=== PATIENT | male | born 1930 | race African-American/Black ===

== ENCOUNTER → 2017-01-31 | Outpatient (CLI) | payer MEDICARE ==
[2017-01-31 12:27] LABS: CH 28.6; CHCM 32.1; HDW 2.93; HGB 11.5 gm/dL (13.0-17.5); MCH 28.6 pg (25.0-35.0); MCV 89.6 fL (80.0-100.0); Mean Platelet Volume 8.3; RBC 4.02 m/uL (4.30-5.90); RDW 14.9 % (11.5-15.5)
[2017-01-31 12:39] LABS: Calcium 9.5 mg/dL (8.4-10.2); Potassium 3.9 mmol/L (3.5-5.1); Total Bilirubin 0.7 mg/dL (0.2-1.3); Total Protein 7.6 g/dL (6.3-8.2)
== END | disposition home or self-care (01) ==
LOC: LABWHC1 11:04
PROVIDERS: ATTEND Nurse Practitioner Acute Care
DX: Z00.00 Encounter for general adult medical examination without abnormal findings (principal); E78.2 Mixed hyperlipidemia; D63.8 Anemia in other chronic diseases classified elsewhere
CPT/HCPCS: 36415; 80053; 80061; 84439; 84443; 85027

== ENCOUNTER 2017-03-29 14:20 | Inpatient (IN) | payer MEDICARE ==
--- NOTE | 2017-03-29 14:57 | ED ---
General Adult HPI - General Chief complaint: Weakness Stated complaint: WEAKNESS Time Seen by Provider: 03/29/17 14:20 Source: EMS, RN notes reviewed Mode of arrival: EMS - History of Present Illness Initial comments: This is an 86-year-old male who presents to the emergency department because he had a syncopal episode at home. Patient states he felt dizzy and lightheaded and then he felt extremely weak and then he got to the point where he stated he couldn't move in the next thing he knows EMS was talking to him. Patient denied any chest pain or palpitations per patient denies headache patient denies numbness weakness. Patient denies any abdominal pain patient denies nausea vomiting diarrhea per patient denies any back pain. Patient denies any injury or trauma. - Related Data Home Medications Medication Instructions Recorded Confirmed Aspirin 325 mg PO DAILY 04/03/14 03/29/17 Brimonidine Tartrate [Alphagan P 1 drops BOTH EYES BID 04/03/14 03/29/17 0.15% eye drop] Calcium Carb-Vit D 250Mg-125Un 1 tab PO DAILY 04/03/14 03/29/17 [Oscal 250+D] Dorzolamide HCl/Timolol Maleat 1 drop BOTH EYES AC-BRKFST 04/03/14 03/29/17 [Cosopt Eye Drops] Ginkgo Biloba 60 mg PO BID 04/03/14 03/29/17 Latanoprost Ophth [Xalatan 0.005%] 1 drops BOTH EYES HS 04/03/14 03/29/17 Lisinopril-Hctz 20-12.5 mg 1 tab PO BID 04/03/14 03/29/17 [Zestoretic 20-12.5] Metoprolol Tartrate [Lopressor] 25 mg PO PC-SUPPER 04/03/14 03/29/17 Oxybutynin Chloride 5 mg PO BID 04/03/14 03/29/17 Simvastatin [Zocor] 20 mg PO HS 04/03/14 03/29/17 Ubidecarenone [Coq-10] 100 mg PO HS 04/03/14 03/29/17 Vitamin B Complex 1 cap PO DAILY 04/03/14 03/29/17 Potassium Chloride [K-Tab ER] 10 meq PO DAILY 03/16/15 03/29/17 Allergies Allergy/AdvReac Type Severity Reaction Status Date / Time No Known Allergies Allergy Verified 03/29/17 15:14 Review of Systems ROS Statement: Those systems with pertinent positive or pertinent negative responses have been documented in the HPI. ROS Other: All systems not noted in ROS Statement are negative. Past Medical History Past Medical History: Coronary Artery Disease (CAD), Hearing Disorder / Deafness Additional Past Medical History / Comment(s): low vision, L knee replaced History of Any Multi-Drug Resistant Organisms: None Reported Past Surgical History: Coronary Bypass/CABG, Orthopedic Surgery Additional Past Surgical History / Comment(s): left knee Past Psychological History: No Psychological Hx Reported Smoking Status: Never smoker Past Alcohol Use History: Occasional Past Drug Use History: None Reported General Exam - General Exam Comments Initial Comments: GENERAL: Patient is well-developed and well-nourished. Patient is nontoxic and well- hydrated and is in no acute distress. ENT: Neck is soft and supple. No significant lymphadenopathy is noted. Oropharynx is clear. Moist mucous membranes. Neck has full range of motion without eliciting any pain. EYES: The sclera were anicteric and conjunctiva were pink and moist. Extraocular movements were intact and pupils were equal round and reactive to light. Eyelids were unremarkable. PULMONARY: Unlabored respirations. Good breath sounds bilaterally. No audible rales rhonchi or wheezing was noted. CARDIOVASCULAR: Patient is bradycardic at 45 beats a minute ABDOMEN: Soft and nontender with normal bowel sounds. No palpable organomegaly was noted. There is no palpable pulsatile mass. SKIN: Skin is clear with no lesions or rashes and otherwise unremarkable. NEUROLOGIC: Patient is alert and oriented x3. Cranial nerves II through XII are grossly intact. Motor and sensory are also intact. Normal speech, volume and content. Symmetrical smile. MUSCULOSKELETAL: Normal extremities with adequate strength and full range of motion. No lower extremity swelling or edema. No calf tenderness. LYMPHATICS: No significant lymphadenopathy is noted PSYCHIATRIC: Normal psychiatric evaluation. Normal interpersonal interactions appears functionally intact in deals appropriately with others. No signs of depression. No signs of anxiety. Course Vital Signs 03/29/17 03/29/17 03/29/17 14:22 15:01 15:41 Temperature 98.2 F Pulse Rate 49 L 48 L Pulse Rate [ 57 L Sitting] Pulse Rate [ 55 L Standing] Pulse Rate [ 45 L Supine] Respiratory 18 18 Rate Blood Pressure 147/62 161/75 Blood Pressure 130/60 [Sitting] Blood Pressure 161/75 [Standing] Blood Pressure 142/65 [Supine] O2 Sat by Pulse 98 100 Oximetry Medical Decision Making - Medical Decision Making EKG shows sinus bradycardia with a first-degree AV block. Patient's heart rate 46 bpm [place] interval is 282 QRS is 86 QT interval is 498 QTC is 435. Patient's EKG shows some inverted T waves in the inferior leads as well as V5 and V6. Chest x-ray shows no acute abnormality I spoke with Dr. Silva and the patient will be admitted because of a syncopal episode and bradycardia. - Lab Data Result diagrams: 03/29/17 14:40 03/29/17 14:40 Lab Results 03/29/17 03/29/17 03/29/17 Range/Units 14:40 14:40 14:40 WBC 3.4 L (3.8-10.6) k/uL RBC 4.12 L (4.30-5.90) m/uL Hgb 11.8 L (13.0-17.5) gm/dL Hct 37.7 L (39.0-53.0) % MCV 91.4 (80.0-100.0) fL MCH 28.5 (25.0-35.0) pg MCHC 31.2 (31.0-37.0) g/dL RDW 14.9 (11.5-15.5) % Plt Count 107 L (150-450) k/uL Neutrophils % 53 % Lymphocytes % 31 % Monocytes % 7 % Eosinophils % 4 % Basophils % 1 % Neutrophils # 1.8 (1.3-7.7) k/uL Lymphocytes # 1.0 (1.0-4.8) k/uL Monocytes # 0.2 (0-1.0) k/uL Eosinophils # 0.1 (0-0.7) k/uL Basophils # 0.0 (0-0.2) k/uL Hypochromasia Slight PT (9.0-12.0) sec INR (<1.1) APTT (22.0-30.0) sec Sodium 139 (137-145) mmol/L Potassium 3.3 L (3.5-5.1) mmol/L Chloride 104 (98-107) mmol/L Carbon Dioxide 26 (22-30) mmol/L Anion Gap 9 mmol/L BUN 29 H (9-20) mg/dL Creatinine 1.61 H (0.66-1.25) mg/dL Est GFR (MDRD) Af Amer 49 (>60 ml/min/1.73 sqM) Est GFR (MDRD) Non-Af 41 (>60 ml/min/1.73 sqM) Glucose 100 H (74-99) mg/dL Calcium 9.1 (8.4-10.2) mg/dL Magnesium 2.1 (1.6-2.3) mg/dL Total Bilirubin 0.7 (0.2-1.3) mg/dL AST 37 (17-59) U/L ALT 25 (21-72) U/L Alkaline Phosphatase 84 (38-126) U/L Total Creatine Kinase 152 (55-170) U/L CK-MB (CK-2) 1.3 (0.0-2.4) ng/mL CK-MB (CK-2) Rel Index 0.9 Troponin I <0.012 (0.000-0.034) ng/mL Total Protein 7.3 (6.3-8.2) g/dL Albumin 3.6 (3.5-5.0) g/dL 03/29/17 Range/Units 14:40 WBC (3.8-10.6) k/uL RBC (4.30-5.90) m/uL Hgb (13.0-17.5) gm/dL Hct (39.0-53.0) % MCV (80.0-100.0) fL MCH (25.0-35.0) pg MCHC (31.0-37.0) g/dL RDW (11.5-15.5) % Plt Count (150-450) k/uL Neutrophils % % Lymphocytes % % Monocytes % % Eosinophils % % Basophils % % Neutrophils # (1.3-7.7) k/uL Lymphocytes # (1.0-4.8) k/uL Monocytes # (0-1.0) k/uL Eosinophils # (0-0.7) k/uL Basophils # (0-0.2) k/uL Hypochromasia PT 15.9 H (9.0-12.0) sec INR 1.6 (<1.1) APTT 28.4 (22.0-30.0) sec Sodium (137-145) mmol/L Potassium (3.5-5.1) mmol/L Chloride (98-107) mmol/L Carbon Dioxide (22-30) mmol/L Anion Gap mmol/L BUN (9-20) mg/dL Creatinine (0.66-1.25) mg/dL Est GFR (MDRD) Af Amer (>60 ml/min/1.73 sqM) Est GFR (MDRD) Non-Af (>60 ml/min/1.73 sqM) Glucose (74-99) mg/dL Calcium (8.4-10.2) mg/dL Magnesium (1.6-2.3) mg/dL Total Bilirubin (0.2-1.3) mg/dL AST (17-59) U/L ALT (21-72) U/L Alkaline Phosphatase (38-126) U/L Total Creatine Kinase (55-170) U/L CK-MB (CK-2) (0.0-2.4) ng/mL CK-MB (CK-2) Rel Index Troponin I (0.000-0.034) ng/mL Total Protein (6.3-8.2) g/dL Albumin (3.5-5.0) g/dL Disposition Clinical Impression: Bradycardia, Syncope and collapse Disposition: ADMITTED IP TO THIS [facility] Referrals: Ray Silva MD [Primary Care Provider] - 1-2 days Time of Disposition: 17:32
[2017-03-29 15:04] LABS: Basophils % (A) 1 %; CH 28.8; CHCM 31.8; Eosinophils # (A) 0.1 k/uL (0-0.7); Eosinophils % (A) 4 %; HCT 37.7 % (39.0-53.0); HDW 2.82; HGB 11.8 gm/dL (13.0-17.5); Hypochromasia Slight; Luc # (Auto) 0.14; Luc % (Auto) 4; Lymphocytes % (A) 31 %; MCH 28.5 pg (25.0-35.0); MCHC 31.2 g/dL (31.0-37.0); MCV 91.4 fL (80.0-100.0); Mean Platelet Volume 8.5; Monocytes # (A) 0.2 k/uL (0-1.0); Monocytes % (A) 7 %; Neutrophils # (A) 1.8 k/uL (1.3-7.7); Neutrophils % (A) 53 %; RBC 4.12 m/uL (4.30-5.90); RDW 14.9 % (11.5-15.5); WBC 3.4 k/uL (3.8-10.6); WBC (Perox) 3.44
[2017-03-29 15:12] LABS: Calcium 9.1 mg/dL (8.4-10.2); Magnesium 2.1 mg/dL (1.6-2.3); Potassium 3.3 mmol/L (3.5-5.1); Total Bilirubin 0.7 mg/dL (0.2-1.3); Total Protein 7.3 g/dL (6.3-8.2)
[2017-03-29 15:21] LABS: INR 1.6 (<1.1); Partial Thromboplastin Time 28.4 sec (22.0-30.0); Prothrombin Time 15.9 sec (9.0-12.0)
--- NOTE | 2017-03-29 15:23 | XR ---
EXAMINATION TYPE: XR chest 2V DATE OF EXAM: 03/29/2017 3:16 PM COMPARISON: 05/05/16 HISTORY: Shortness of breath TECHNIQUE: Frontal and lateral views of the chest are obtained. FINDINGS: Scattered senescent parenchymal changes noted. Hyperinflation compatible with COPD. No evidence for infiltrate. No evidence for atelectasis. Heart size is stable. Thoracic aorta. Mediastinal structures are stable and grossly unremarkable. No evidence for hilar prominence. Degenerative changes dorsal spine. IMPRESSION: 1. No evidence for acute pulmonary disease.
[2017-03-29 15:30] LABS: Creatine Kinase 152 U/L (55-170)
[2017-03-29 15:42] LABS: Creatine Kinase MB 1.3 ng/mL (0.0-2.4); Troponin I <0.012 ng/mL (0.000-0.034)
[2017-03-29] MEDS ORDERED: NITROGLYCERIN SL TABS 0.4 MG TAB SUBLINGUAL PRN (17:32)
[2017-03-29] MEDS ORDERED: Potassium Replacement Protocol 1 EACH MISC MISCELLANE PRN (21:35)
[2017-03-29 22:01] LABS: Creatine Kinase 131 U/L (55-170)
[2017-03-29 22:14] LABS: Creatine Kinase MB 1.1 ng/mL (0.0-2.4); Troponin I <0.012 ng/mL (0.000-0.034)
[2017-03-29] MEDS: POTASSIUM CHLORIDE ORAL LIQUID 40 MEQ/30 ML CUP NG-TUBE SCH (23:20)
[2017-03-30] MEDS: POTASSIUM CHLORIDE ORAL LIQUID 40 MEQ/30 ML CUP NG-TUBE SCH ×2 (01:40→03:45)
[2017-03-30 03:44] LABS: CH 28.7; CHCM 31.9; HCT 37.6 % (39.0-53.0); HDW 2.79; Hypochromasia Slight; MCH 28.9 pg (25.0-35.0); MCHC 31.9 g/dL (31.0-37.0); MCV 90.6 fL (80.0-100.0); Mean Platelet Volume 7.4; RBC 4.15 m/uL (4.30-5.90); WBC 3.4 k/uL (3.8-10.6)
[2017-03-30 03:55] LABS: Anion Gap 8 mmol/L; Blood Urea Nitrogen 25 mg/dL (9-20); Calcium 9.2 mg/dL (8.4-10.2); Carbon Dioxide 23 mmol/L (22-30); Chloride 108 mmol/L (98-107); Cholesterol 160 mg/dL (<200); Glucose 84 mg/dL (74-99); HDL Cholesterol 51 mg/dL (40-60); Non-African American GFR(MDRD) 51 (>60 ml/min/1.73 sqM); Potassium 4.1 mmol/L (3.5-5.1); Sodium 139 mmol/L (137-145); Triglycerides 45 mg/dL (<150)
[2017-03-30 04:13] LABS: Creatine Kinase 124 U/L (55-170)
[2017-03-30 04:27] LABS: Creatine Kinase MB 0.8 ng/mL (0.0-2.4); Troponin I <0.012 ng/mL (0.000-0.034)
--- NOTE | 2017-03-30 08:03 | HP ---
DATE OF ADMISSION: 03/29/2017 CHIEF COMPLAINT: Passing episode. HISTORY OF PRESENT ILLNESS: This 86-year-old gentleman was brought in to the emergency room by EMS. The patient was sitting up in a chair at home when he slumped forward. The patient's noticed that he was unresponsive. His eyes were rolled back. The patient had no seizure activity. The patient was breathing somewhat harder but he did not have any diaphoresis. No nausea or vomiting. He had eaten about 3 to 4 hours earlier. The patient is not a diabetic. The patient was seen by EMS, noted that his blood pressure was adequate. The patient's pulse rate was slow. He is brought to the emergency room in view of this. The patient is alert at the time of this evaluation. The patient did take about 5 to 10 minutes to come around. Upon evaluation in the emergency room, patient is noted at the initial evaluation by the emergency room physician noted to be in no distress and had no focal neurological deficits. Patient was alert. At time of my exam, the patient totally his usual self. The patient has no specific complaints of chest pain, shortness of breath or headache. 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 The patient also has a history of peripheral arterial disease with previous left leg revascularization. He was at the vascular surgeon yesterday and was noted the bypass was felt to be intact. His has had a history of coronary atherosclerosis and coronary artery disease. Patient does have a history of degenerative arthritis. No history of any lung disease, liver disease, kidney disease, ulcers, TB, hepatitis. No history of any rheumatic fever, myocardial infarction. Does have had a minor CVA with no focal neurodeficits. Surgeries included left total knee arthroplasty, left leg revascularization and right cataract surgery. PERSONAL HISTORY: The patient is an ex-smoker, quit smoking in 1973, he did smoke a pack per day for 20 years. Alcohol none. Vaccination history: Previous Zostavax and Pneumovax. He also has had Prevnar 13 on February 14, 2017. ALLERGIES: POSSIBLY PLETAL. MEDICATIONS: 1. Metoprolol tartrate 25 mg daily. 2. Amlodipine 5 mg daily. 3. Aspirin 81 mg daily. 4. Alphagan 0.2% eye drops one drop both eyes daily. 5. Xalatan 0.005% eye drops one drop both eyes daily. 6. Cosopt 2% on/0.5% eye drops one drop both eyes daily. 7. Amlodipine 5 mg daily. 8. Potassium 10 mEq b.i.d. 9. Lisinopril hydrochlorothiazide 20/12.51 daily. 10. Oxybutynin, chloride 5 mg 1 tablet by mouth b.i.d. 11. Metoprolol tartrate 25 mg daily. 12. Simvastatin 20 mg daily. 13. Nitrostat 70, 1 p.r.n. 14. Flomax 0.4 mg daily. 15. Tamsulosin 0.4 mg daily. SOCIAL HISTORY: The patient is , lives with spouse. 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 He does exercise by bicycling, stationary bike on a regular basis. FAMILY HISTORY: Father at the age of 72. He had bone cancer, primary unknown. Mother at the age of 79, She had acute myocardial infarction. History of hypertension and brothers he had 6 brothers, all . One had CA of the lung, one had carcinoma of the larynx, 2 brothers had acute myocardial infarctions. Two other brothers, history unknown. The patient had 4 sisters, all . One at the age of 69 of carcinoma of the breast, another sister at the age of 76 acute myocardial infarction. The other 2 sisters, history unknown. The patient has a son and daughter living, both in fairly good health. The patient son is 53 and a daughter 57. REVIEW OF SYSTEMS: NEURO: Denies any headaches, dizziness. No double vision. Does have some mild visual problems. No symptoms of focal neurological deficit. The patient did have a syncopal episode. PSYCH: No anxiety, depression. CARDIAC: Denies chest pain, angina, palpitations. RESPIRATORY: Denies shortness of breath, cough, hemoptysis. GI: Denies any nausea, vomiting, abdominal pain, diarrhea. : Denies symptoms of dysuria or hematuria, does have some frequency. EXTREMITIES: Denies pain except for the knee joints. CONSTITUTIONAL: No fever or chills. HEMATOLOGIC: No anemia or bleeding disorder. ENDOCRINE: No history of diabetes mellitus, history of hyperlipidemia, on medical therapy. SKIN: No rashes. ENT: Adequate smell, taste. Decreased hearing. EYES: Decreased vision left eye. PHYSICAL EXAMINATION: Pleasant gentleman, at present in no distress, lying in the stretcher without any difficulty. He is able to ( ). VITAL SIGNS: Temperature 97.7, pulse 41, respirations are 18, blood pressure 159/73, pulse ox 96% room air. The patient had some orthostatic changes done in the emergency room which revealed blood pressure 130/60 sitting, blood pressure 161/75, standing and blood pressure 142/65, supine. The patient is afebrile. HEENT: Normocephalic. NECK: Decreased range of motion. Pupils are left reactive. Nostrils are clear. Oral cavity is moist. Ears reveal no drainage. Neck reveals no JVD, carotid bruits, or thyromegaly. Chest examination is clear to auscultation and percussion. CARDIAC: Normal S1, S2 with no gallops. Systolic murmur 2/6 left sternal border. ABDOMEN: Soft, no palpable masses. Bowel sounds normal. No organomegaly. No abdominal bruits. EXTREMITIES: Reveal trace edema. NEUROLOGICAL: Awake, alert, oriented x3 with well-coordinated movements in both upper and lower extremities with equal strength. The patient has fairly strong hand grasp. LABORATORY ASSESSMENT: An EKG which reveals sinus bradycardia with first-degree AV block in LVH. Chest x-ray reveals no acute process. Biopsy evaluation revealed the hemoglobin 11.8, white count of 3400, platelets 107,000. The patient's INR is 1.6, potassium 3.3, BUN 29, creatinine 1.61, glucose 100, liver enzymes normal. Cardiac enzymes are normal. Thyroid functions normal. Albumin 3.6. ASSESSMENT: 1. Syncope etiology probably cardiac suspect significant bradycardia. 2. History of hypertension. 3. History of coronary artery disease. 4. History of peripheral arterial disease. 5. Hyperlipidemia, on medical therapy. 6. Hypertension on medical therapy. 7. Previous history of cerebral aneurysm. PLAN: The patient at present is stable. Continue present medical regimen. The patient's condition was discussed with the patient and spouse. Prognosis remains guarded. Patient being admitted to the hospital for further evaluation regarding, syncope because of the prolonged episode. The patient suspect probably has ( ) syncope. He will, however, have an echocardiogram and carotid duplex studies done to rule out any other process. Prognosis remains guarded.
--- NOTE | 2017-03-30 08:23 | US ---
EXAMINATION TYPE: US carotid duplex BILAT DATE OF EXAM: 03/30/2017 8:11 AM COMPARISON: NONE CLINICAL HISTORY: syncope. EXAM MEASUREMENTS: RIGHT: Peak Systolic Velocity (PSV) cm/sec ----- Right CCA: 69.1 ----- Right ICA: 72.3 ----- Right ECA: 88.9 ICA/CCA ratio: 1.0 RIGHT: End Diastole cm/sec ----- Right CCA: 12.0 ----- Right ICA: 10.4 ----- Right ECA: 0.0 LEFT: Peak Systolic Velocity (PSV) cm/sec ----- Left CCA: 64.5 ----- Left ICA: 75.7 ----- Left ECA: 114.1 ICA/CCA ratio: 1.2 LEFT: End Diastole cm/sec ----- Left CCA: 10.4 ----- Left ICA: 19.7 ----- Left ECA: 0.0 VERTEBRALS (direction of flow): Right Vertebral: Antegrade Left Vertebral: Antegrade No elevated velocities, no significant stenosis, bilateral plaque noted IMPRESSION: I DO NOT SEE EVIDENCE OF A HEMODYNAMICALLY SIGNIFICANT STENOSIS IN EITHER CAROTID SYSTEM. Criteria for Assigning % of Stenosis / Diameter reduction (Estimation based on the indirect measurements of the internal carotid artery velocities (ICA PSV). 1. Normal (no stenosis)=ICA PSV < 125 cm/s: ratio < 2.0: ICA EDV<40 cm/s. 2. Less than 50% stenosis=ICA PSV < 125 cm/s: ratio < 2.0: ICA EDV<40 cm/s. 3. 50 to 69% stenosis=ICA PSV of 125 to 230 cm/s: ration 2.0 ? 4.0: ICA EDV 40-100 cm/s. 4. Greater than 70% stenosis to near occlusion= ICA PSV > 230 cm/s: ratio > 4.0: ICA EDV > 100 cm/s. 5. Near occlusion= ICA PSV velocities may be low or undetectable: variable ratio and ICA EDV. 6. Total occlusion=unable to detect flow.
[2017-03-30] MEDS: ASPIRIN 325 MG TAB PO SCH (08:42)
[2017-03-30] MEDS: LISINOPRIL-HCTZ 20-12.5 MG 1 EACH TAB PO SCH ×2 (08:42→21:11)
[2017-03-30] MEDS: BRIMONIDINE TARTRATE 0.2% DROPS 5 ML BTL BOTH EYES SCH ×2 (08:43→21:11)
[2017-03-30] MEDS: POTASSIUM CHLORIDE ER 10 MEQ TAB.ER.PRT PO SCH (08:43)
[2017-03-30] MEDS: TAMSULOSIN 0.4 MG CAP.ER.24H PO SCH (08:43)
[2017-03-30] MEDS: OXYBUTYNIN CHLORIDE 5 MG TAB PO SCH ×2 (08:43→21:11)
[2017-03-30] MEDS ORDERED: PSYLLIUM HUSK 100% 6 GM PACKET PO SCH (09:00)
[2017-03-30] MEDS ORDERED: ASPIRIN 325 MG TAB PO SCH (09:00)
--- NOTE | 2017-03-30 09:41 | P.CRDCN ---
History of Present Illness Consult date: 03/30/17 Reason for Consult (text): syncope, bradycardia Chief complaint: syncope History of present illness: This is a pleasant 86-year-old -Citizen Of [place] gentleman with a known history of hypertension, coronary artery disease and previous CABG. Presented to the emergency department via EMS after losing consciousness at home. Patient said he was getting ready to leave for therapy sat down in a chair felt weak and dizzy and briefly lost consciousness. He said bland EMS arrived he began to come around and felt better. Said he has had similar episode in the past and does have periods of lightheadedness. He's had no complaints of dizziness, lightheadedness or syncope since admission. On admission his EKG showed sinus bradycardia with a first-degree AV block with heart rates in the 40s. His potassium was 3.3 was supplemented and currently 4.1. Troponins were negative 3, BUN 25 and creatinine 1.32. Echocardiogram has been ordered. Chest x-ray was negative for any acute cardiopulmonary process. He was on metoprolol tartrate 25 mg daily at home and this is been on hold. Patient's heart rate is currently 50s to 60s. His blood pressure is running high 170s to 200 systolic. He is currently on Zestoretic for blood pressure control. Past Medical History Past Medical History: Coronary Artery Disease (CAD), Hearing Disorder / Deafness Additional Past Medical History / Comment(s): low vision, L knee replaced History of Any Multi-Drug Resistant Organisms: None Reported Past Surgical History: Coronary Bypass/CABG, Orthopedic Surgery Additional Past Surgical History / Comment(s): left knee, left leg bypass-as per patients Past Anesthesia/Blood Transfusion Reactions: No Reported Reaction Past Psychological History: No Psychological Hx Reported Smoking Status: Former smoker Past Alcohol Use History: Occasional Past Drug Use History: None Reported Medications and Allergies Home Medications Medication Instructions Recorded Confirmed Type Aspirin 325 mg PO DAILY 04/03/14 03/29/17 History Brimonidine Tartrate [Alphagan P 1 drops BOTH EYES BID 04/03/14 03/29/17 History 0.15% eye drop] Calcium Carb-Vit D 250Mg-125Un 1 tab PO DAILY 04/03/14 03/29/17 History [Oscal 250+D] Dorzolamide HCl/Timolol Maleat 1 drop BOTH EYES AC-BRKFST 04/03/14 03/29/17 History [Cosopt Eye Drops] Ginkgo Biloba 60 mg PO BID 04/03/14 03/29/17 History Latanoprost Ophth [Xalatan 0.005%] 1 drops BOTH EYES HS 04/03/14 03/29/17 History Lisinopril-Hctz 20-12.5 mg 1 tab PO BID 04/03/14 03/29/17 History [Zestoretic 20-12.5] Metoprolol Tartrate [Lopressor] 25 mg PO PC-SUPPER 04/03/14 03/29/17 History Oxybutynin Chloride 5 mg PO BID 04/03/14 03/29/17 History Simvastatin [Zocor] 20 mg PO HS 04/03/14 03/29/17 History Ubidecarenone [Coq-10] 100 mg PO HS 04/03/14 03/29/17 History Vitamin B Complex 1 cap PO DAILY 04/03/14 03/29/17 History Potassium Chloride [K-Tab ER] 10 meq PO DAILY 03/16/15 03/29/17 History Glucosamine Sulfate 500 mg PO BID 03/29/17 03/29/17 History Psyllium Husk (with Sugar) 575 mg PO DAILY 03/29/17 03/29/17 History [Metamucil Powder] Tamsulosin [Flomax] 0.4 mg PO DAILY 03/29/17 03/29/17 History Allergies Allergy/AdvReac Type Severity Reaction Status Date / Time No Known Allergies Allergy Verified 03/29/17 15:14 Physical Exam Vitals: Vital Signs Temp Pulse Pulse Resp BP BP Pulse Ox 03/30/17 04:00 97.9 F 44 L 16 175/84 99 03/30/17 00:00 96.8 F L 50 L 16 171/79 99 03/29/17 20:00 97.3 F L 42 L 16 176/81 100 03/29/17 18:45 97.7 F 41 L 18 159/73 96 03/29/17 17:47 52 L 18 159/73 96 Intake and Output 03/29/17 03/30/17 03/30/17 22:59 06:59 14:59 Intake Total 300 Output Total 200 350 Balance -200 -50 Intake: Oral 300 Output: Urine 200 350 Other: Voiding Method Urinal # Voids 1 2 Weight 60 kg PHYSICAL EXAMINATION: HEENT: Head is atraumatic, normocephalic. Pupils equal, round. Neck is supple. There is no elevated jugular venous pressure. Patient is hard of hearing HEART EXAMINATION: Heart sounds regular, S1 and S2 with a systolic murmur. CHEST EXAMINATION: Lungs are clear to auscultation and precussion. No chest wall tenderness is noted on palpation or with deep breathing. ABDOMEN: Soft, nontender. Bowel sounds are heard. No organomegaly noted. EXTREMITIES: 2+ peripheral pulses with no evidence of peripheral edema and no calf tenderness noted. NEUROLOGIC patient is awake, alert and oriented x3. . Results 03/30/17 03:15 03/30/17 03:15 Cardiac Enzymes 03/29/17 03/30/17 Range/Units 20:50 03:15 CK-MB (CK-2) 1.1 0.8 (0.0-2.4) ng/mL Troponin I <0.012 <0.012 (0.000-0.034) ng/mL Lipids 03/30/17 Range/Units 03:15 Triglycerides 45 (<150) mg/dL Cholesterol 160 (<200) mg/dL HDL Cholesterol 51 (40-60) mg/dL CBC 03/30/17 Range/Units 03:15 WBC 3.4 L (3.8-10.6) k/uL RBC 4.15 L (4.30-5.90) m/uL Hgb 12.0 L (13.0-17.5) gm/dL Hct 37.6 L (39.0-53.0) % Plt Count 106 L (150-450) k/uL Comprehensive Metabolic Panel 03/30/17 Range/Units 03:15 Sodium 139 (137-145) mmol/L Potassium 4.1 (3.5-5.1) mmol/L Chloride 108 H (98-107) mmol/L Carbon Dioxide 23 (22-30) mmol/L BUN 25 H (9-20) mg/dL Creatinine 1.32 H (0.66-1.25) mg/dL Glucose 84 (74-99) mg/dL Calcium 9.2 (8.4-10.2) mg/dL Current Medications Generic Name Dose Route Start Last Admin Trade Name Freq PRN Reason Stop Dose Admin Amlodipine Besylate 5 mg 03/30/17 09:15 Norvasc PO DAILY LALO Aspirin 325 mg 03/30/17 09:00 03/30/17 08:42 Aspirin PO 325 mg DAILY LALO Administration Atorvastatin Calcium 10 mg 03/30/17 21:00 Lipitor PO HS [facility] Brimonidine Tartrate 1 drops 03/30/17 09:00 03/30/17 08:43 Alphagan P 0.2% Ophth Soln BOTH EYES 1 drops BID LALO Administration Lisinopril/HCTZ 1 each 03/30/17 09:00 03/30/17 08:42 Zestoretic 20-12.5 PO 1 each BID LALO Administration Latanoprost 1 drops 03/30/17 21:00 Xalatan 0.005% BOTH EYES HS [facility] Miscellaneous Information 1 each 03/29/17 21:35 Potassium Per Protocol MISCELLANE DAILY PRN Per Protocol Protocol Nitroglycerin 0.4 mg 03/29/17 17:32 Nitrostat SUBLINGUAL Q5M PRN Chest Pain Oxybutynin Chloride 5 mg 03/30/17 09:00 03/30/17 08:43 Ditropan PO 5 mg BID LALO Administration Potassium Chloride 10 meq 03/30/17 09:00 03/30/17 08:43 K-Dur 10 PO 10 meq DAILY LALO Administration Psyllium Hydrophilic Mucilloid 6 gm 03/30/17 21:00 Metamucil PO HS LALO Tamsulosin HCl 0.4 mg 03/30/17 09:00 03/30/17 08:43 Flomax PO 0.4 mg DAILY LALO Administration Intake and Output 03/29/17 03/30/17 03/30/17 22:59 06:59 14:59 Intake Total 300 Output Total 200 350 Balance -200 -50 Intake: Oral 300 Output: Urine 200 350 Other: Voiding Method Urinal # Voids 1 2 Weight 60 kg 03/30/17 03:15 03/30/17 03:15 Assessment and Plan Plan: Assessment and plan #1 syncope, likely secondary to bradycardia #2 bradycardia #3 hypertension, uncontrolled #4 history of coronary artery disease From cardiology standpoint, continue to hold metoprolol. We will review 2-D echo with Doppler. We'll add Norvasc for uncontrolled hypertension. We will monitor the patient's heart rate for at least another 24 hours. Further recommendations to follow. [employer] note has been reviewed, I agree with a documented findings and plan of care. Patient was seen and examined.
--- NOTE | 2017-03-30 10:54 | ECHOF ---
Referral Reason:syncope MEASUREMENTS -------- HEIGHT: 154.9 cm WEIGHT: 59.9 kg BP: 175/84 IVSd: 1.3 cm (0.6 - 1.1) LVIDd: 5.4 cm (3.9 - 5.3) LVPWd: 1.2 cm (0.6 - 1.1) IVSs: 1.7 cm LVIDs: 3.5 cm LVPWs: 2.0 cm LAESV Index (A-L): 50.72 ml/m Ao Diam: 3.2 cm (2.0 - 3.7) AV Cusp: 1.7 cm (1.5 - 2.6) LA Diam: 3.1 cm (2.7 - 3.8) MV EXCURSION: 14.577 mm (> 18.000) MV EF SLOPE: 19 mm/s (70 - 150) EPSS: 1.2 cm MV E Cesario: 0.73 m/s MV DecT: 169 ms MV A Cesario: 0.52 m/s MV E/A Ratio: 1.39 AV maxP.55 mmHg AV meanP.82 mmHg AR PHT: 360 ms RAP: 5.00 mmHg RVSP: 39.53 mmHg FINDINGS -------- Sinus rhythm with extra systolic beats. This was a technically good study. There is mild concentric left ventricular hypertrophy. Overall left ventricular systolic function is low-normal with, an EF between 50 - 55 %. The right ventricle is normal in size and function. LA is severely dilated >40 ml/m2 The right atrium is normal in size. Aortic valve is trileaflet and is mildly thickened. There is mild aortic regurgitation. There is mild aortic stenosis present. The mitral valve leaflets are mildly thickened. Smbqjjao-qw-mmoejh mitral regurgitation is present. Mild tricuspid regurgitation present. There is mild pulmonary hypertension. The right ventricular systolic pressure, as measured by Doppler, is 39.53mmHg. Pulmonic valve appears structurally normal. The aortic root size is normal. The pericardium is normal. CONCLUSIONS -------- 1. Sinus rhythm with extra systolic beats. 2. There is mild aortic stenosis present. 3. The mitral valve leaflets are mildly thickened. 4. Eazzitkr-mz-brdglr mitral regurgitation is present. 5. Mild tricuspid regurgitation present. 6. There is mild pulmonary hypertension. 7. The right ventricular systolic pressure, as measured by Doppler, is 39.53mmHg. 8. Pulmonic valve appears structurally normal. 9. The aortic root size is normal. 10. The pericardium is normal. 11. This was a technically good study. 12. There is mild concentric left ventricular hypertrophy. 13. Overall left ventricular systolic function is low-normal with, an EF between 50 - 55 %. 14. The right ventricle is normal in size and function. 15. LA is severely dilated >40 ml/m2 16. The right atrium is normal in size. 17. Aortic valve is trileaflet and is mildly thickened. 18. There is mild aortic regurgitation. BRIDGE IRONWORKER HELPER: Elizabeth Terry RDCS
[2017-03-30] MEDS: amLODIPine 5 MG TAB PO SCH (11:04)
--- NOTE | 2017-03-30 14:22 | PN ---
CHIEF COMPLAINT: Re-evaluation. HISTORY OF PRESENT ILLNESS: This is an 86-year-old gentleman was admitted to the hospital with syncope. The patient does have significant bradycardia. The patient has been referred to [employer] java developer for consideration of the possibility of a pacemaker. We are waiting further evaluation with an echocardiogram and carotids. The patient did have carotids which revealed no evidence of any significant disease process. Echocardiogram showed ejection fraction of 50 to 55% and left atrium markedly dilated. Mild aortic regurgitation, mild aortic stenosis present. Mild pulmonary hypertension. No evidence of pericardial effusion. REVIEW OF SYSTEMS: NEURO: Denies any headaches, dizziness. PSYCH: No anxiety. CARDIAC: No chest pain, angina, palpitation. RESPIRATORY: No shortness of breath, cough, hemoptysis. GI: No nausea, vomiting, abdominal pain, diarrhea. : No symptoms of dysuria, hematuria. EXTREMITIES: Denies pain. CONSTITUTIONAL: No fever or chills. PHYSICAL EXAMINATION: Pleasant gentleman in no distress. Vitals as recorded with pulse rate generally in the 40s, occasionally 50s. Is afebrile. Temperature 98.6, pulse 51, respirations 18, blood pressure was 200/115, pulse ox 99% on room air. HEENT: Normocephalic. NECK: No JVD. Chest is clear to auscultation. CARDIAC: Normal S1, S2 with no gallops. Systolic murmur 2/6 left sternal border. Distant heart sounds. ABDOMEN: Soft. Bowel sounds present. EXTREMITIES: Reveal trace edema. NEUROLOGICAL: Awake, alert, oriented with well coordinated movements. LABORATORY ASSESSMENT: Hemoglobin 12, white count 3.4, platelets 106,000. BUN 25, creatinine 1.32. Troponin is negative. LDL 100. ASSESSMENT: 1. Syncope etiology undetermined, possible bradycardia. 2. Coronary artery disease, stable. 3. Hypertension with elevated blood pressure at times. 4. History of peripheral arterial disease. 5. History of previous cerebrovascular accident. 6. Thrombocytopenia. 7. Leukopenia. PLAN: Continue present medical regimen. The patient's condition discussed with the patient. Prognosis guarded. Await final decision by Cardiology. Patient is off beta alexander and Timolol.
[2017-03-30] MEDS: PSYLLIUM HUSK 100% 6 GM PACKET PO SCH (21:10)
[2017-03-30] MEDS: LATANOPROST 0.005% OPHTH DROPS 2.5 ML BTL BOTH EYES SCH (21:10)
[2017-03-30] MEDS: ATORVASTATIN 10 MG TAB PO SCH (21:11)
[2017-03-31] MEDS: ASPIRIN 325 MG TAB PO SCH (07:58)
[2017-03-31] MEDS: amLODIPine 5 MG TAB PO SCH (07:58)
[2017-03-31] MEDS: POTASSIUM CHLORIDE ER 10 MEQ TAB.ER.PRT PO SCH (07:58)
[2017-03-31] MEDS: OXYBUTYNIN CHLORIDE 5 MG TAB PO SCH ×2 (07:59→20:23)
[2017-03-31] MEDS: TAMSULOSIN 0.4 MG CAP.ER.24H PO SCH (07:59)
[2017-03-31] MEDS: LISINOPRIL-HCTZ 20-12.5 MG 1 EACH TAB PO SCH ×2 (07:59→20:23)
[2017-03-31] MEDS: BRIMONIDINE TARTRATE 0.2% DROPS 5 ML BTL BOTH EYES SCH ×2 (07:59→20:22)
--- NOTE | 2017-03-31 08:45 | P.PN ---
Progress Note - Text The patient is a 86-year-old gentleman whom I am covering for for Dr. Silva. Patient apparently presented with significant bradycardia and syncope. He is in the process of being evaluated by cardiology for possible pacemaker. Medications have been adjusted so that he is off any beta blockers and his timolol. He does have past history of coronary artery disease along with hypertension, peripheral vascular disease and a previous CVA. Thrombocytopenia and leukopenia. Monitor pattern at times in the 40s at night. Presently up into the 60s and 70s with sinus rhythm. This morning is sitting up in bed. He denies any chest pain or shortness of breath. He is alert and oriented. Vital signs reveal a temp of 97.5 with a pulse now of 63 and regular and respirations 17. Blood pressure elevated at 186/81 and he is 97% saturated on room air. Lung and heart examination is clear and regular. No unusual distal edema. No focal neurological deficits. Lab tests from March 30 show a white count of 3.4 and a hemoglobin of 12 and a platelet count of 106. Apparently these are patient's baseline results. Carotid Dopplers did not show any significant stenoses. Impressions and plans: Discussed with cardiology nurse practitioner. Also discussed with patient at the bedside. We'll await further recommendations from cardiology regarding need for pacemaker. The patient is presently on amlodipine and lisinopril for blood pressure control.
[2017-03-31] MEDS ORDERED: amLODIPine 10 MG TAB PO SCH (10:18)
[2017-03-31 12:22] LABS: Anion Gap 8 mmol/L; Blood Urea Nitrogen 18 mg/dL (9-20); Carbon Dioxide 25 mmol/L (22-30); Chloride 104 mmol/L (98-107); Glucose 104 mg/dL (74-99); Non-African American GFR(MDRD) 57 (>60 ml/min/1.73 sqM); Potassium 3.5 mmol/L (3.5-5.1); Sodium 137 mmol/L (137-145)
--- NOTE | 2017-03-31 12:25 | P.PN ---
Subjective Principal diagnosis: Syncope, Bradycardia Is a pleasant 86-year-old -[place] gentleman with a known history of hypertension, coronary artery disease and previous CABG. Presented to the emergency department via EMS after losing consciousness at home. Patient said he was getting ready to leave for therapy sat down in a chair and felt weak and dizzy and briefly lost consciousness. He said by the time EMS arrived he began to come around and felt quite a bit better. He has had similar episodes in the past and does have periods of lightheadedness. Admission his EKG showed sinus bradycardia with a first-degree AV block with heart rates in the 40s. His potassium was 3.3 and was supplemented, awaiting labs for this morning. Troponins were negative 3 BUN was 25 and creatinine 1.32. Echocardiogram was done that showed an ejection fraction of 50-55%. His admission his metoprolol has been discontinued. His heart rates have been much better in the 60s however patient is having quite a bit of ectopy, PVCs, couplets, triplets and short runs of nonsustained VT, patient is asymptomatic with these. His blood pressure continues to be poorly controlled, amlodipine was added yesterday. Objective - Vital Signs Vital signs: Vital Signs Temp 98.3 F 03/31/17 08:00 Pulse 63 03/31/17 08:00 Resp 18 03/31/17 08:00 BP 209/95 03/31/17 08:00 Pulse Ox 99 03/31/17 08:00 Intake & Output 03/30/17 03/31/17 03/31/17 18:59 06:59 18:59 Intake Total 1080 360 Output Total 200 580 600 Balance 880 -580 -240 Weight 75.6 kg Intake: Oral 1080 360 Output: Urine 200 580 600 Other: Voiding Method Urinal Toilet Toilet Urinal Urinal # Voids 1 1 1 # Bowel Movements 0 1 - Exam PHYSICAL EXAMINATION: HEENT: Head is atraumatic, normocephalic. Pupils equal, round. Neck is supple. There is no elevated jugular venous pressure. HEART EXAMINATION: Heart sounds regular, S1 and S2 with a systolic murmur. CHEST EXAMINATION: Lungs are clear to auscultation and precussion. No chest wall tenderness is noted on palpation or with deep breathing. ABDOMEN: Soft, nontender. Bowel sounds are heard. No organomegaly noted. EXTREMITIES: 2+ peripheral pulses with no evidence of peripheral edema and no calf tenderness noted. NEUROLOGIC patient is awake, alert and oriented x3. . - Labs CBC & Chem 7: 03/30/17 03:15 03/30/17 03:15 Assessment and Plan Plan: Assessment and plan #1 syncope, likely secondary to bradycardia #2 bradycardia #3 hypertension, uncontrolled #4 history of coronary artery disease From cardiology standpoint, continue to hold metoprolol. We will increase Norvasc. We will monitor the patient's heart rate and blood pressure for at least another 24 hours. Further recommendations to follow. BELL TIER note has been reviewed, I agree with a documented findings and plan of care. Patient was seen and examined.
[2017-03-31] MEDS ORDERED: amLODIPine 5 MG TAB PO STA (15:24)
[2017-03-31] MEDS: SODIUM CHLORIDE 0.65% NASAL SPRAY 44 ML BTL NASAL SCH ×2 (16:01→20:22)
[2017-03-31] MEDS: LATANOPROST 0.005% OPHTH DROPS 2.5 ML BTL BOTH EYES SCH (20:22)
[2017-03-31] MEDS: PSYLLIUM HUSK 100% 6 GM PACKET PO SCH (20:23)
[2017-03-31] MEDS: ATORVASTATIN 10 MG TAB PO SCH (20:23)
[2017-04-01] MEDS: BRIMONIDINE TARTRATE 0.2% DROPS 5 ML BTL BOTH EYES SCH ×2 (08:21→21:10)
[2017-04-01] MEDS: LISINOPRIL-HCTZ 20-12.5 MG 1 EACH TAB PO SCH (08:21)
[2017-04-01] MEDS: ASPIRIN 325 MG TAB PO SCH (08:21)
[2017-04-01] MEDS: SODIUM CHLORIDE 0.65% NASAL SPRAY 44 ML BTL NASAL SCH ×2 (08:21→21:11)
[2017-04-01] MEDS: POTASSIUM CHLORIDE ER 10 MEQ TAB.ER.PRT PO SCH (08:22)
[2017-04-01] MEDS: OXYBUTYNIN CHLORIDE 5 MG TAB PO SCH ×2 (08:22→21:10)
[2017-04-01] MEDS: TAMSULOSIN 0.4 MG CAP.ER.24H PO SCH (08:22)
--- NOTE | 2017-04-01 09:54 | P.PN ---
Progress Note - Text The patient is a 86-year-old gentleman, a patient of Dr. Silva for whom I am covering today. Patient initially presented with significant bradycardia and syncope. He is in the process of being evaluated by cardiology. He has been off his beta blockers. Patient does have past history of coronary artery disease along with hypertension, peripheral vascular disease and a previous CVA along with thrombocytopenia and leukopenia. This morning he is in a chair at the side of the bed. Easily arouse. He denies chest pain or shortness of breath. Last recorded vital signs reveal a temperature of 98.1 with a pulse of 63 and regular along with the nonlabored respirations of 16 and a blood pressure of 174 /79. 96% saturation on room air. He is generally alert and oriented. Lung and heart examination is clear and regular. Abdomen nontender. No unusual edema. Cranial nerves intact. No focal weakness noted. Laboratory results: Yesterday his potassium of 3.5. BUN of 18 with a creatinine 1.2 giving him a GFR of greater than 60. Blood sugar 104. TSH was normal at 1.7. Cholesterol values are generally good for his age with an LDL cholesterol of 100. Monitor pattern appears to show sinus rhythm with a rate around 60 through the night. Impressions and plans: Discussed with patient at bedside. Monitor pattern overall appears to have been stable through the night. Cardiology has increased his amlodipine to 10 mg for blood pressure. Along with his other medications. Will await their final opinion regarding pacemaker placement or possible discharge on present medications with outpatient follow-up.
--- NOTE | 2017-04-01 11:59 | P.PN ---
Subjective Principal diagnosis: Symptomatic bradycardia This is a pleasant 86-year-old gentleman with a past medical history significant for CAD and prior CABG, hypertension, dyslipidemia was admitted to the hospital after he was brought via ambulance with syncope. The patient was found to be in severe bradycardia. He was receiving metoprolol. The metoprolol was held and the patient was started on calcium channel alexander with Norvasc. I'll follow-up with him today, he is feeling better. The heart rate has improved. He denies having any chest pain or discomfort or dizziness or lightheadedness. I recommended continue the current medical treatment, continue holding the metoprolol, and monitor the heart rate for additional 24 hours. Possible discharge home tomorrow morning. Objective - Vital Signs Vital signs: Vital Signs Temp 99.8 F H 04/01/17 08:00 Pulse 81 04/01/17 08:00 Resp 18 04/01/17 08:00 BP 136/89 04/01/17 08:00 Pulse Ox 98 04/01/17 08:00 Intake & Output 03/31/17 04/01/17 04/01/17 18:59 06:59 18:59 Intake Total 960 360 Output Total 600 200 300 Balance 360 -200 60 Weight 75.7 kg Intake: Oral 960 360 Output: Urine 600 200 300 Other: Voiding Method Toilet Urinal Urinal Urinal # Voids 1 1 1 - Constitutional General appearance: Present: no acute distress - Respiratory Respiratory: bilateral: CTA - Cardiovascular Rhythm: regular Heart sounds: normal: S1, S2 - Labs CBC & Chem 7: 03/30/17 03:15 03/31/17 11:54 Labs: Abnormal Lab Results - Last 24 Hours (Table) 03/31/17 Range/Units 11:54 Glucose 104 H (74-99) mg/dL Assessment and Plan Plan: Assessment #1 symptomatic bradycardia which has improved #2 known CAD #3 multiple comorbid conditions Plan #1 continue monitoring the heart rate for additional 24 hours #2 possible discharge home tomorrow morning
[2017-04-01] MEDS ORDERED: SODIUM CHLORIDE 0.9% 500 ML IV ONE (14:41)
[2017-04-01] MEDS: ATORVASTATIN 10 MG TAB PO SCH (21:09)
[2017-04-01] MEDS: LATANOPROST 0.005% OPHTH DROPS 2.5 ML BTL BOTH EYES SCH (21:10)
[2017-04-01] MEDS: PSYLLIUM HUSK 100% 6 GM PACKET PO SCH (21:26)
[2017-04-02 04:56] VITALS: TEMP 97.5
[2017-04-02] MEDS: SODIUM CHLORIDE 0.65% NASAL SPRAY 44 ML BTL NASAL SCH (07:51)
[2017-04-02] MEDS: POTASSIUM CHLORIDE ER 10 MEQ TAB.ER.PRT PO SCH (07:51)
[2017-04-02] MEDS: OXYBUTYNIN CHLORIDE 5 MG TAB PO SCH (07:53)
[2017-04-02] MEDS: ASPIRIN 325 MG TAB PO SCH (07:53)
[2017-04-02] MEDS: TAMSULOSIN 0.4 MG CAP.ER.24H PO SCH (07:53)
[2017-04-02] MEDS: BRIMONIDINE TARTRATE 0.2% DROPS 5 ML BTL BOTH EYES SCH (07:59)
[2017-04-02 08:45] LABS: CHCM 33.1; HCT 40.7 % (39.0-53.0); HDW 2.86; HGB 13.4 gm/dL (13.0-17.5); MCH 29.1 pg (25.0-35.0); MCHC 32.9 g/dL (31.0-37.0); MCV 88.4 fL (80.0-100.0); Mean Platelet Volume 7.8; RBC 4.61 m/uL (4.30-5.90); RDW 14.6 % (11.5-15.5); WBC 4.3 k/uL (3.8-10.6)
[2017-04-02 10:43] LABS: Anion Gap 6 mmol/L; Blood Urea Nitrogen 21 mg/dL (9-20); Calcium 8.9 mg/dL (8.4-10.2); Carbon Dioxide 24 mmol/L (22-30); Chloride 105 mmol/L (98-107); Glucose 101 mg/dL (74-99); Non-African American GFR(MDRD) 58 (>60 ml/min/1.73 sqM); Potassium 4.2 mmol/L (3.5-5.1); Sodium 135 mmol/L (137-145)
--- NOTE | 2017-04-02 16:02 | P.PN ---
Subjective Principal diagnosis: Symptomatic bradycardia This is a pleasant 86-year-old gentleman with a past medical history significant for CAD and prior CABG, hypertension, dyslipidemia was admitted to the hospital after he was brought via ambulance with syncope. The patient was found to be in severe bradycardia. He was receiving metoprolol. The metoprolol was held and the patient was started on calcium channel alexander with Norvasc.On follow-up with him today, he is feeling better. The heart rate has improved. He denies having any chest pain or discomfort or dizziness or lightheadedness. seasonal warehouse associate reviewed, patient's heart rate does not drop below mid 50s. Occasional flip bundles noted. I recommended continue the current medical treatment, continue holding the metoprolol, he may be able to be discharged home from cardiology's perspective, follow-up appointment will be made with Dr. Higgins in the office post discharge. Objective - Vital Signs Vital signs: Vital Signs Temp 97.5 F L 04/02/17 04:00 Pulse 74 04/02/17 11:24 Resp 18 04/02/17 11:24 BP 121/78 04/02/17 11:24 Pulse Ox 99 04/02/17 11:24 Intake & Output 04/01/17 04/02/17 04/02/17 18:59 06:59 18:59 Intake Total 680 1160 480 Output Total 500 350 Balance 180 810 480 Intake: Intake, IV Titration 200 160 0 Amount Sodium Chloride 0.9% 500 200 160 0 ml @ 200 mls/hr IV . Q2H30M ONE Rx#:[id number] Oral 480 1000 480 Output: Urine 500 350 Other: Voiding Method Urinal Urinal # Voids 1 - Exam PHYSICAL EXAMINATION: HEENT: Head is atraumatic, normocephalic. Pupils equal, round. Neck is supple. There is no elevated jugular venous pressure. HEART EXAMINATION: Heart S1, S2 normal. No murmur or gallop heard. CHEST EXAMINATION: Lungs are clear to auscultation and precussion. No chest wall tenderness is noted on palpation or with deep breathing. ABDOMEN: Soft, nontender. Bowel sounds are heard. No organomegaly noted. EXTREMITIES: 2+ peripheral pulses with no evidence of peripheral edema and no calf tenderness noted. NEUROLOGIC patient is awake, alert and oriented -3. . - Labs CBC & Chem 7: 04/02/17 08:21 05/08/17 09:33 Labs: Abnormal Lab Results - Last 24 Hours (Table) 04/02/17 04/02/17 Range/Units 08:21 09:33 Plt Count 101 L (150-450) k/uL Sodium 135 L (137-145) mmol/L BUN 21 H (9-20) mg/dL Glucose 101 H (74-99) mg/dL Assessment and Plan (1) Symptomatic bradycardia Status: Acute (2) CAD (coronary artery disease) Status: Acute (3) HTN (hypertension) Status: Acute (4) Syncope Status: Acute Plan: Cardiology's perspective, we'll continue to hold the beta alexander, he may be able to be discharged home today to follow-up with Dr. Higgins in the office post discharge. DNP note has been reviewed, I agree with a documented findings and plan of care. Patient was seen and examined.
[2017-04-02 16:26] VITALS: BP 112/76; PULSE 128; RESP 16
--- NOTE | 2017-04-03 07:56 | PN ---
CHIEF COMPLAINT: Re-evaluation. HISTORY OF PRESENT ILLNESS: An 86-year-old gentleman who was admitted to the hospital with a syncopal episode. The patient was noted to be bradycardic. Since admission the patient has been doing better gradually. Now he has been running in the rate of 70. He also has markedly elevated blood pressure in the morning, was placed on amlodipine which help. He did have some postural hypotension symptoms yesterday, but they improved with some IV fluid. The patient denies any other associated symptoms. He is feeling markedly improved. REVIEW OF SYSTEMS: NEURO: Denies any headaches, dizziness. PSYCH: No anxiety. CARDIAC: No chest pain, angina, palpitations. RESPIRATORY: Denies shortness of breath, cough, hemoptysis. GI: Denies any nausea, vomiting, abdominal pain, diarrhea. : No symptoms of dysuria, hematuria. EXTREMITIES: Denies pain or edema. CONSTITUTIONAL: No fever or chills. PHYSICAL EXAMINATION: Pleasant gentleman in no distress. Vital signs stable with a pulse of 50 per minute has been running 70s today earlier. Blood pressure is 151/81, pulse ox 95% on room air. HEENT: Normocephalic. NECK: Supple. No JVD. Chest is clear to auscultation. CARDIAC: Normal S1, S2 with no gallops. Systolic murmur 2/6 at the apex. ABDOMEN: Soft. Bowel sounds normal. EXTREMITIES: No edema. NEUROLOGIC: Awake, alert, oriented with well coordinated movements. Laboratory assessment was electrolytes which showed a sodium 135, potassium 4.2, chloride 105, CO2 of 24, BUN 21, creatinine 1.19. Glucose 101. ASSESSMENT: 1. Syncope secondary to bradycardia. 2. History of coronary artery disease. 3. Hypertension with accelerated blood pressure. 4. Peripheral arterial disease. PLAN: The patient is stable. Continue present medical regimen. The patient's condition was discussed with the patient. Prognosis remains guarded.
--- NOTE | 2017-04-21 14:18 | P.DS ---
Providers Date of admission: 03/29/17 17:32 Attending physician: Ray Silva Consults: 03/29/17 17:32 Consult Physician Urgent Consulting Provider: [facility] Consult Reason/Comments: Syncope, bradycardia Do you want consulting provider notified?: Yes Primary care physician: Ray Silva Hospital Course: Hospital course: This 86-year-old gentleman was admitted to the hospital with a syncopal episode which was fairly prolonged period agent seen in the emergency room noted to be hypertensive but also bradycardic. The patient's heart rate was in the 30s. He was the patient came around he was totally oriented during this unresponsiveness period he had no focal signs elicited. CAT scan of the brain did not reveal any evidence of stroke. The patient's laboratory evaluations was stable for the patient. Due to the bradycardia his metoprolol was discontinued and the patient's timolol eyedrops were discontinued. Patient remained stable in the hospital. The patient was monitored. Patient was seen by cardiology who had elected to keep the patient around for longer observation. The patient had no further focal signs or significant bradycardia. Blood pressure was better controlled. In view of this patient is discharged home. Patient was follow up in the outpatient. Diagnosis to include 1. Syncope 2. Bradycardia 3. Hypertension with elevated blood pressure 4. History of CVA 5. CK D3 6. History of peripheral arterial disease Plan - Discharge Summary New Discharge Prescriptions: amLODIPine [Norvasc] 10 mg PO DAILY #90 tab Discharge Medication List Aspirin 325 mg PO DAILY 04/03/14 [History] Brimonidine Tartrate [Alphagan P 0.15% Ophth Soln] 1 drops BOTH EYES BID [History] Calcium Carb-Vit D 250Mg-125Un [Oscal 250+D] 1 tab PO DAILY 04/03/14 [History] Ginkgo Biloba 60 mg PO BID 04/03/14 [History] Latanoprost Ophth [Xalatan 0.005%] 1 drops BOTH EYES HS 04/03/14 [History] Lisinopril-Hctz 20-12.5 mg [Zestoretic 20-12.5] 1 tab PO BID 04/03/14 [History] Oxybutynin Chloride 5 mg PO BID 04/03/14 [History] Simvastatin [Zocor] 20 mg PO HS 04/03/14 [History] Ubidecarenone [Coq-10] 100 mg PO HS 04/03/14 [History] Vitamin B Complex 1 cap PO DAILY 04/03/14 [History] Potassium Chloride [K-Tab ER] 10 meq PO DAILY 03/16/15 [History] Glucosamine Sulfate 500 mg PO BID 03/29/17 [History] Psyllium Husk (with Sugar) [Metamucil Powder] 575 mg PO DAILY 03/29/17 [History] Tamsulosin [Flomax] 0.4 mg PO DAILY 03/29/17 [History] Nitroglycerin Sl Tabs [Nitrostat] 0.4 mg SUBLINGUAL Q5M PRN #0 tab 04/02/17 [Rx] Sodium Chloride 0.65% Nasal [Deep Sea (Saline)] 2 spray NASAL BID spray [Rx] amLODIPine [Norvasc] 10 mg PO DAILY #90 tab 04/02/17 [Rx] Follow up Appointment(s)/Referral(s): Ray Silva MD [Primary Care Provider] - 1-2 days (Follow up appt on SundayApril 09 at 8:45 am) Dennis Higgins MD [STAFF PHYSICIAN] - 10 Days (Call to schedule follow up appt in 10 days) Patient Instructions/Handouts: Syncope (DC), Bradycardia (DC) Discharge Disposition: HOME SELF-CARE
== END 2017-04-02 17:22 | disposition home or self-care (01) | DRG 310 ==
LOC: EC 14:20 → 6SEL 17:32
PROVIDERS: ADMIT Internal Medicine; ATTEND Internal Medicine
DX: R00.1 Bradycardia, unspecified (principal); I67.1 Cerebral aneurysm, nonruptured; D69.6 Thrombocytopenia, unspecified; I27.2 Other secondary pulmonary hypertension; R55 Syncope and collapse; M19.90 Unspecified osteoarthritis, unspecified site; D72.819 Decreased white blood cell count, unspecified; E78.5 Hyperlipidemia, unspecified; H91.90 Unspecified hearing loss, unspecified ear; I10 Essential (primary) hypertension; I25.10 Atherosclerotic heart disease of native coronary artery without angina pectoris; I44.0 Atrioventricular block, first degree; I73.9 Peripheral vascular disease, unspecified; I95.1 Orthostatic hypotension; I35.2 Nonrheumatic aortic (valve) stenosis with insufficiency; I69.998 Other sequelae following unspecified cerebrovascular disease; H54.52 Low vision, left eye, normal vision right eye; Z79.82 Long term (current) use of aspirin; Z79.899 Other long term (current) drug therapy; Z87.891 Personal history of nicotine dependence; Z95.1 Presence of aortocoronary bypass graft; Z96.652 Presence of left artificial knee joint; Z88.8 Allergy status to other drugs, medicaments and biological substances; Z82.49 Family history of ischemic heart disease and other diseases of the circulatory system
CPT/HCPCS: 36415; 71020; 80048; 80053; 80061; 82550; 82553; 83735; 84443; 84484; 85025; 85027; 85610; 85730; 93005; 93306; 93880; 99285

== ENCOUNTER 2017-05-30 05:45 | Day surgery (SDC) | payer MEDICARE ==
[2017-05-25 15:14] VITALS: BMI 22.2
[2017-05-30] MEDS ORDERED: ceFAZolin 1,000 MG in SODIUM CHLORIDE 0.9% IRRIGATIO 250 ML IRRIGATION ONE (06:00)
[2017-05-30] MEDS ORDERED: ceFAZolin 2 GM in SODIUM CHLORIDE 0.9% 100 ML IVPB ONE (06:00)
[2017-05-30 06:28] VITALS: RESP 18
[2017-05-30] MEDS: SODIUM CHLORIDE 0.9% 1,000 ML IV SCH (06:36)
[2017-05-30] MEDS ORDERED: IODIXANOL 320 MG/ML 100 ML IV ONE (07:30)
[2017-05-30] MEDS ORDERED: fentaNYL (PF) 50 MCG/ML 2 ML AMP ONE (07:51)
[2017-05-30] MEDS ORDERED: LIDOCAINE 1% INJ 10MG/ML (20 ML MDV) SQ ONE ×2 (07:53→08:00)
[2017-05-30] MEDS ORDERED: fentaNYL (PF) 50 MCG/ML 2 ML AMP IV ONE (07:54)
[2017-05-30] MEDS ORDERED: ACETAMINOPHEN TAB 325 MG TAB PO PRN (08:53)
[2017-05-30] MEDS ORDERED: SODIUM CHLORIDE 0.65% NASAL SPRAY 44 ML BTL NASAL PRN (08:54)
[2017-05-30] MEDS ORDERED: NITROGLYCERIN SL TABS 0.4 MG TAB SUBLINGUAL PRN (08:54)
[2017-05-30] MEDS ORDERED: GINKGO BILOBA 60 MG PO SCH (09:00)
[2017-05-30] MEDS ORDERED: NON-FORMULARY DRUG (Glucosam/Chon-Msm1/C/Mang/Bosw [Glucosamine-Chondroitin Tablet] 1 EACH PO SCH (09:00)
--- NOTE | 2017-05-30 09:06 | P.PCN ---
Date of Procedure: 05/30/17 Preoperative Diagnosis: Sick sinus syndrome and severe bradycardia. Patient has severe underlying ischemic heart disease requiring beta blockers. History of syncope Postoperative Diagnosis: The same Procedure(s) Performed: Axillary venography, dual-chamber pacemaker insertion Implants: Indications for Procedure: Operative Findings: Description of Procedure: HISTORY: 86-year-old gentleman with history of severe ischemic heart disease, bradycardia, sick sinus syndrome and with history of syncope. Patient is advised to have permanent pacemaker implantation. CONSENT:I have discussed the risks, benefits and alternative therapies for the above-mentioned procedure and for both sedation/analgesia as well as necessary blood product administration, if indicated, as they pertain to this patient. The patient has indicated understanding and acceptance of the risks and procedures discussed. Conscious sedation: Patient is given IV fentanyl 25 g for sedation. PROCEDURE: Patient was brought to the lab in a fasting state. Patient was prepped and draped in the usual fashion. Patient was given IV sedation with fentanyl and Versed. The skin below the left clavicle was infiltrated with lidocaine. An incision was made parallel to deltopectoral groove was deepened until the pectoral fascia was exposed. A pocket was created by blunt dissection and cautery. Axillary venography was performed to delineate the course of the axillary vein. 2 sticks were performed into extrathoracic portion of the axillary vein and 2 sheaths were advanced over the guidewires and left in subclavian vein. LEADS: ATRIAL: This is manufactured by [employer]. Model number is 7735. Serial number is [id number]. VENTRICULAR: This is manufactured by [employer].. Model number is 7732. Serial number is [id number] THE DEVICE:: This is manufactured by [employer]. Model number is L101. Serial number is [id number]. The ventricular lead is maneuvered l with help of a straight and curved stylets into the left ventricle apical region. Satisfactory position was obtained and threshold measurements were made. The atrial lead was then maneuvered into the right atrial appendage. And thresholds were obtained. THRESHOLDS: ATRIUM: The minimum pacing threshold is 0.9 to 1.3 V at pulse width of 0.5 ms. Impedance is 500 and ohms. The P-wave is 2-2.5 mV VENTRICLE : The minimum patient threshold is 0.5 at pulse width of 0.5 ms. Impedance is 765 ohms. R-wave is about 8 mV . The leads and pulse generator remained in the pocket after it was washed with antibiotics. Pocket was closed in the usual fashion. The fascia was closed with 2-0 Prolene ,the subcutaneous tissue was closed with 3-0 Prolene and the skin was closed with 4-0 Prolene. PROGRAMMING: MODE: DDD RATE: 60 to 130 OUTPUT: Atrium : 3.5 at pulse width of 0.5 ventricle: 3.5 V at pulse width of 0.5 FINAL IMPRESSION: 1. Axillary venography 2. Dual-chamber pacemaker insertion COMPLICATIONS: None PLAN: Continue prophylactic antibiotics. Possible discharge within next 24 hours.
[2017-05-30] MEDS: ceFAZolin 2 GM in SODIUM CHLORIDE 0.9% 100 ML IVPB SCH ×3 (10:08→20:05)
[2017-05-30] MEDS: POTASSIUM CHLORIDE ER 10 MEQ TAB.ER.PRT PO SCH (10:09)
[2017-05-30] MEDS: CALCIUM CARB-VIT D 500MG-200UN 1 EACH TAB PO SCH (10:09)
[2017-05-30] MEDS: TAMSULOSIN 0.4 MG CAP.ER.24H PO SCH (10:09)
[2017-05-30] MEDS: OXYBUTYNIN CHLORIDE 5 MG TAB PO SCH ×2 (10:09→20:06)
[2017-05-30] MEDS: LISINOPRIL-HCTZ 20-12.5 MG 1 EACH TAB PO SCH ×2 (10:09→20:06)
[2017-05-30] MEDS: DORZOLAMIDE HCL 2% DROPS 10 ML BTL BOTH EYES SCH (10:10)
[2017-05-30] MEDS: BRIMONIDINE TARTRATE 0.2% DROPS 5 ML BTL BOTH EYES SCH ×2 (10:10→20:05)
[2017-05-30] MEDS ORDERED: B COMPLEX-VIT C-VIT E-ZINC 1 EACH TAB PO SCH (12:00)
[2017-05-30] MEDS: METOPROLOL TARTRATE 25 MG TAB PO SCH ×2 (14:37→20:06)
[2017-05-30] MEDS ORDERED: PSYLLIUM HUSK 100% 6 GM PACKET PO SCH (21:00)
[2017-05-30] MEDS ORDERED: LATANOPROST 0.005% OPHTH DROPS 2.5 ML BTL BOTH EYES SCH (21:00)
[2017-05-30] MEDS ORDERED: ATORVASTATIN 10 MG TAB PO SCH (21:00)
[2017-05-30] MEDS ORDERED: NON-FORMULARY DRUG (Ubidecarenone [Coq-10] 100 MG) PO SCH (21:00)
[2017-05-31] MEDS: ceFAZolin 2 GM in SODIUM CHLORIDE 0.9% 100 ML IVPB SCH (02:26)
[2017-05-31] MEDS: SODIUM CHLORIDE 0.9% 1,000 ML IV SCH (06:05)
--- NOTE | 2017-05-31 07:09 | XR ---
EXAMINATION TYPE: XR chest 2V DATE OF EXAM: 05/31/2017 HISTORY: Lead placement check. REFERENCE: Previous study dated 03/29/2017. FINDINGS: There is been interval placement of a bipolar pacemaker via a left subclavian approach. Jeffry roximately overlies the right atrium is slightly overlies the right ventricle. The heart is mildly enlarged. There is platelike atelectasis at the left lung base. The lungs are oth erwise clear. There is mild blunting of the left CP angle. I could not exclude a small effusion. IMPRESSION: 1. SATISFACTORY PACEMAKER PLACEMENT. 2. MILD CARDIOMEGALY. 3. LEFT BASILAR ATELECTASIS. 4. I COULD NOT EXCLUDE A SMALL LEFT EFFUSION.
[2017-05-31 08:00] VITALS: TEMP 98.1
--- NOTE | 2017-05-31 08:34 | P.DS ---
Providers Date of admission: 05/30/2017 Attending physician: Dennis Higgins Primary care physician: Ray Silva - Discharge Diagnosis(es) (1) Pacemaker Current Visit: Yes Status: Acute (2) Bradycardia Current Visit: No Status: Acute (3) CAD (coronary artery disease) Current Visit: No Status: Acute (4) HTN (hypertension) Current Visit: No Status: Acute (5) Symptomatic bradycardia Current Visit: No Status: Acute (6) Syncope Current Visit: No Status: Acute Hospital Course: This patient was brought in for elective permanent pacemaker implantation because of sick sinus syndrome with episodes of junctional bradycardia, SVT and sinus bradycardia. Dual-chamber pacemaker was implanted yesterday. Patient tolerated the procedure well. He remained stable over the last night. His blood pressures running high this morning. We will resume his Norvasc. He claims she is feeling much better. He seems to have more balance and more energy. Patient is going to be discharged home later today with a blood pressure is well controlled. He'll continue home medications, along with Keflex. He'll keep the area dry. Advised not to drive and also not to do any exertion with left arm. He is instructed to keep the left arm below shoulder level. Follow-up in the office in one week Plan - Discharge Summary New Discharge Prescriptions: New Cephalexin [Keflex] 500 mg PO Q8HR #10 cap No Action Brimonidine Tartrate [Alphagan P 0.15% Ophth Soln] 1 drops BOTH EYES BID Ubidecarenone [Coq-10] 100 mg PO HS Lisinopril-Hctz 20-12.5 mg [Zestoretic 20-12.5] 1 tab PO BID Simvastatin [Zocor] 20 mg PO HS Aspirin 325 mg PO DAILY Vitamin B Complex 1 cap PO DAILY Latanoprost Ophth [Xalatan 0.005%] 1 drops BOTH EYES HS Ginkgo Biloba 60 mg PO BID Oxybutynin Chloride 5 mg PO BID Potassium Chloride [K-Tab ER] 10 meq PO DAILY Tamsulosin [Flomax] 0.4 mg PO DAILY Psyllium Husk (with Sugar) [Metamucil Powder] 575 mg PO HS Nitroglycerin Sl Tabs [Nitrostat] 0.4 mg SUBLINGUAL Q5M PRN #0 tab PRN Reason: Chest Pain Dorzolamide 2% [Trusopt 2%] 1 drops BOTH EYES QAM Sodium Chloride 0.65% Nasal [Deep Sea (Saline)] 2 spray NASAL BID PRN PRN Reason: Nasal Congestion Glucosam/Chin-Msm1/C/Leland/Bosw [Glucosamine-Chondroitin Tablet] 1 each PO BID Calcium Carbonate/Vitamin D3 [Calcium 600-Vit D3 400 Caplet] 1 each PO DAILY Discharge Medication List Aspirin 325 mg PO DAILY 04/03/14 [History] Brimonidine Tartrate [Alphagan P 0.15% Ophth Soln] 1 drops BOTH EYES BID [History] Ginkgo Biloba 60 mg PO BID 04/03/14 [History] Latanoprost Ophth [Xalatan 0.005%] 1 drops BOTH EYES HS 04/03/14 [History] Lisinopril-Hctz 20-12.5 mg [Zestoretic 20-12.5] 1 tab PO BID 04/03/14 [History] Oxybutynin Chloride 5 mg PO BID 04/03/14 [History] Simvastatin [Zocor] 20 mg PO HS 04/03/14 [History] Ubidecarenone [Coq-10] 100 mg PO HS 04/03/14 [History] Vitamin B Complex 1 cap PO DAILY 04/03/14 [History] Potassium Chloride [K-Tab ER] 10 meq PO DAILY 03/16/15 [History] Psyllium Husk (with Sugar) [Metamucil Powder] 575 mg PO HS 03/29/17 [History] Tamsulosin [Flomax] 0.4 mg PO DAILY 03/29/17 [History] Nitroglycerin Sl Tabs [Nitrostat] 0.4 mg SUBLINGUAL Q5M PRN #0 tab 04/02/17 [Rx] Calcium Carbonate/Vitamin D3 [Calcium 600-Vit D3 400 Caplet] 1 each PO DAILY [History] Dorzolamide 2% [Trusopt 2%] 1 drops BOTH EYES QAM 05/25/17 [History] Glucosam/Chin-Msm1/C/[place]/Bosw [Glucosamine-Chondroitin Tablet] 1 each PO BID [History] Sodium Chloride 0.65% Nasal [Deep Sea (Saline)] 2 spray NASAL BID PRN 05/25/17 [ History] Cephalexin [Keflex] 500 mg PO Q8HR #10 cap 05/31/17 [Rx] Follow up Appointment(s)/Referral(s): Dennis Higgins MD [STAFF PHYSICIAN] - 1 Week
[2017-05-31] MEDS ORDERED: amLODIPine 5 MG TAB PO SCH (09:00)
[2017-05-31] MEDS: POTASSIUM CHLORIDE ER 10 MEQ TAB.ER.PRT PO SCH (09:04)
[2017-05-31] MEDS: LISINOPRIL-HCTZ 20-12.5 MG 1 EACH TAB PO SCH (09:04)
[2017-05-31] MEDS: CALCIUM CARB-VIT D 500MG-200UN 1 EACH TAB PO SCH (09:04)
[2017-05-31] MEDS: METOPROLOL TARTRATE 25 MG TAB PO SCH (09:04)
[2017-05-31] MEDS: OXYBUTYNIN CHLORIDE 5 MG TAB PO SCH (09:04)
[2017-05-31] MEDS: TAMSULOSIN 0.4 MG CAP.ER.24H PO SCH (09:05)
[2017-05-31] MEDS: DORZOLAMIDE HCL 2% DROPS 10 ML BTL BOTH EYES SCH (09:05)
[2017-05-31] MEDS: BRIMONIDINE TARTRATE 0.2% DROPS 5 ML BTL BOTH EYES SCH (09:05)
[2017-05-31 14:07] VITALS: BP 149/74; PULSE 61
== END 2017-05-31 14:29 | disposition home or self-care (01) ==
LOC: CATHEP 05:45 → 3OBS 08:49 → CATHEP 05-31 14:29
PROVIDERS: ATTEND Internal Medicine Cardiovascular Disease
DX: I49.5 Sick sinus syndrome (principal); R00.1 Bradycardia, unspecified; I25.10 Atherosclerotic heart disease of native coronary artery without angina pectoris; I25.83 Coronary atherosclerosis due to lipid rich plaque; I10 Essential (primary) hypertension; Z87.891 Personal history of nicotine dependence; R55 Syncope and collapse; E78.00 Pure hypercholesterolemia, unspecified; E78.5 Hyperlipidemia, unspecified; I73.9 Peripheral vascular disease, unspecified; Z79.82 Long term (current) use of aspirin; Z79.899 Other long term (current) drug therapy
CPT/HCPCS: 33208; 71020; 99152; 99153 ×3; C1785; C1898; Q9967; J0690 ×3; J2001; J3010

== ENCOUNTER 2017-08-02 17:20 | Emergency (ER) | payer MEDICARE ==
--- NOTE | 2017-08-02 17:44 | ED ---
Back Pain HPI - General Chief Complaint: Back Pain/Injury Stated Complaint: Fall Time Seen by Provider: 08/02/17 17:30 Source: patient Limitations: no limitations - History of Present Illness Initial Comments: 86-year-old male patient presents to emergency department today for evaluation of right rib pain after a fall yesterday. Patient states that he was assisting his , attempted to keep her from falling when he fell and hit his ribs on the coffee table. Patient states that after the fall he took Tylenol and applied ice to the area which did improve the pain. Patient states that he woke up this morning the pain seemed to increase. Patient states the pain worsens with taking a deep breath, moving his right arm, or pressing on the area. Patient describes the pain as sharp and stabbing. Patient denies hitting his head or losing consciousness during the fall. Patient denies any headache, neck pain, back pain, shortness of breath, dizziness, weakness, abdominal pain, nausea, vomiting, or difficulties with bowel movements or urination. Patient states he has glaucoma is unable to see his urine to confirm nor deny hematuria. - Related Data Home Medications Medication Instructions Recorded Confirmed Aspirin 325 mg PO DAILY 04/03/14 08/02/17 Brimonidine Tartrate [Alphagan P 1 drops BOTH EYES BID 04/03/14 08/02/17 0.15% Ophth Soln] Ginkgo Biloba 60 mg PO BID 04/03/14 08/02/17 Latanoprost Ophth [Xalatan 0.005%] 1 drops BOTH EYES HS 04/03/14 08/02/17 Lisinopril-Hctz 20-12.5 mg 1 tab PO BID 04/03/14 08/02/17 [Zestoretic 20-12.5] Oxybutynin Chloride 5 mg PO BID 04/03/14 08/02/17 Simvastatin [Zocor] 20 mg PO HS 04/03/14 08/02/17 Ubidecarenone [Coq-10] 100 mg PO HS 04/03/14 08/02/17 Vitamin B Complex 1 cap PO DAILY 04/03/14 08/02/17 Potassium Chloride [K-Tab ER] 10 meq PO DAILY 03/16/15 08/02/17 Psyllium Husk (with Sugar) 575 mg PO HS 03/29/17 08/02/17 [Metamucil Powder] Tamsulosin [Flomax] 0.4 mg PO DAILY 03/29/17 08/02/17 Calcium Carbonate/Vitamin D3 1 tab PO DAILY 05/25/17 08/02/17 [Calcium 600-Vit D3 400 Caplet] Dorzolamide 2% [Trusopt 2%] 1 drops BOTH EYES QAM 05/25/17 08/02/17 Glucosam/Chin-Msm1/C/[place]/Bosw 1 tab PO BID 05/25/17 08/02/17 [Glucosamine-Chondroitin Tablet] Sodium Chloride 0.65% Nasal [Deep 2 spray NASAL BID PRN 05/25/17 08/02/17 Sea (Saline)] Metoprolol Tartrate [Lopressor] 25 mg PO BID 05/31/17 08/02/17 Previous Rx's Medication Instructions Recorded Nitroglycerin Sl Tabs [Nitrostat] 0.4 mg SUBLINGUAL Q5M PRN #0 tab 04/02/17 Allergies Allergy/AdvReac Type Severity Reaction Status Date / Time No Known Allergies Allergy Verified 08/02/17 19:28 Review of Systems ROS Statement: Those systems with pertinent positive or pertinent negative responses have been documented in the HPI. ROS Other: All systems not noted in ROS Statement are negative. Past Medical History Past Medical History: Deep Vein Thrombosis (DVT), Eye Disorder, Hearing Disorder / Deafness, Osteoarthritis (OA), Prostate Disorder Additional Past Medical History / Comment(s): SEE DR ANDERSON'S H&P, GLAUCOMA , HX OF DVT RT LEG, USES WALKER OR CANE, FREQUENT FALLS History of Any Multi-Drug Resistant Organisms: None Reported Past Surgical History: Heart Catheterization, Joint Replacement Additional Past Surgical History / Comment(s): left knee REPLACED, left leg bypass, HEART CATH X2 NO STENTS, CRESENCIO CATARACT Past Anesthesia/Blood Transfusion Reactions: No Reported Reaction Past Psychological History: No Psychological Hx Reported Smoking Status: Former smoker - Past Family History Father Family Medical History: Cancer General Exam Limitations: no limitations General appearance: alert, in no apparent distress Head exam: Present: atraumatic, normocephalic, normal inspection Eye exam: Present: normal appearance, PERRL, EOMI. Absent: scleral icterus, conjunctival injection, periorbital swelling ENT exam: Present: normal exam, normal oropharynx, mucous membranes moist, TM's normal bilaterally Neck exam: Present: normal inspection, full ROM, other (Nontender, no step-off, no deformity to firm midline palpation of the posterior cervical spine. Full range of motion without pain or limitation.). Absent: tenderness, meningismus, lymphadenopathy Respiratory exam: Present: normal lung sounds bilaterally, chest wall tenderness (Over the right ribs near the mid axillary line.). Absent: respiratory distress, wheezes, rales, rhonchi, stridor Cardiovascular Exam: Present: regular rate, normal rhythm, normal heart sounds. Absent: systolic murmur, diastolic murmur, rubs, gallop, clicks GI/Abdominal exam: Present: soft, normal bowel sounds, other (No flank ecchymosis, no [place] or [place] sign. Nontender to deep palpation.). Absent: distended, tenderness, guarding, rebound, rigid Extremities exam: Present: normal inspection, full ROM, normal capillary refill , other. Absent: tenderness, pedal edema, joint swelling, calf tenderness Back exam: Present: normal inspection, full ROM, other (Nontender, no step-off, no deformity to firm midline palpation of the thoracic and lumbar vertebrae. Full range of motion without pain or limitation.). Absent: tenderness, CVA tenderness (R), CVA tenderness (L), vertebral tenderness Neurological exam: Present: alert, oriented X3, CN II-XII intact Psychiatric exam: Present: normal affect, normal mood Skin exam: Present: warm, dry, intact, normal color. Absent: rash Course Vital Signs 08/02/17 08/02/17 08/02/17 17:26 18:29 19:17 Temperature 97.9 F Pulse Rate 54 L 53 L 53 L Respiratory 16 18 16 Rate Blood Pressure 127/68 149/67 138/71 O2 Sat by Pulse 100 97 100 Oximetry 08/02/17 20:28 Temperature 97.7 F Pulse Rate 52 L Respiratory 18 Rate Blood Pressure 151/72 O2 Sat by Pulse 97 Oximetry Medical Decision Making - Medical Decision Making 86-year-old male patient presented for right rib pain after falling and striking his ribs on a coffee table yesterday. Chest x-ray with right ribs was obtained and showed no acute cardiopulmonary process and no rib fracture nor dislocation. Urinalysis was performed and did show a small amount of blood in the urine. CT of the abdomen and pelvis was obtained and showed no acute process, however there was an incidental finding of a 5.7 cm abdominal aortic aneurysm. Did discuss this finding with the patient and his , they were unaware of the aneurysm. Did discuss the importance of follow-up with a vascular surgeon for further evaluation of the aneurysm as it is about the size where they would generally do surgery. Instructed them to call the office tomorrow morning for an appointment. Did give them a copy of the CT scan CD and report. Patient was instructed to take Tylenol for right rib contusion, apply ice 20 minutes at a time at least 4 times daily, as well as instructions to perform cough and deep breathing exercises 10 times an hour while awake. He is instructed to follow-up with his primary care physician for recheck in 1-2 days. He is instructed to return here immediately for any new, worsening, or concerning symptoms. Patient and his verbalize understanding and agree with this plan. - Lab Data Result diagrams: 08/02/17 18:45 08/02/17 18:45 Lab Results 08/02/17 08/02/17 08/02/17 Range/Units 17:50 18:45 18:45 WBC 3.2 L (3.8-10.6) k/uL RBC 3.74 L (4.30-5.90) m/uL Hgb 11.1 L (13.0-17.5) gm/dL Hct 34.1 L (39.0-53.0) % MCV 91.2 (80.0-100.0) fL MCH 29.7 (25.0-35.0) pg MCHC 32.6 (31.0-37.0) g/dL RDW 15.3 (11.5-15.5) % Plt Count 106 L (150-450) k/uL Neutrophils % 57 % Lymphocytes % 22 % Monocytes % 10 % Eosinophils % 7 % Basophils % 0 % Neutrophils # 1.8 (1.3-7.7) k/uL Lymphocytes # 0.7 L (1.0-4.8) k/uL Monocytes # 0.3 (0-1.0) k/uL Eosinophils # 0.2 (0-0.7) k/uL Basophils # 0.0 (0-0.2) k/uL Hypochromasia Slight PT 11.9 (9.0-12.0) sec INR 1.2 H (<1.2) APTT 25.9 (22.0-30.0) sec Sodium (137-145) mmol/L Potassium (3.5-5.1) mmol/L Chloride (98-107) mmol/L Carbon Dioxide (22-30) mmol/L Anion Gap mmol/L BUN (9-20) mg/dL Creatinine (0.66-1.25) mg/dL Est GFR (MDRD) Af Amer (>60 ml/min/1.73 sqM) Est GFR (MDRD) Non-Af (>60 ml/min/1.73 sqM) Glucose (74-99) mg/dL Calcium (8.4-10.2) mg/dL Total Bilirubin (0.2-1.3) mg/dL AST (17-59) U/L ALT (21-72) U/L Alkaline Phosphatase (38-126) U/L Total Protein (6.3-8.2) g/dL Albumin (3.5-5.0) g/dL Urine Color Light Yellow Urine Appearance Clear (Clear) Urine pH 6.0 (5.0-8.0) Ur Specific [place] 1.007 (1.001-1.035) Urine Protein Trace H (Negative) Urine Glucose (UA) Negative (Negative) Urine Ketones Negative (Negative) Urine Blood Small H (Negative) Urine Nitrite Negative (Negative) Urine Bilirubin Negative (Negative) Urine Urobilinogen <2.0 (<2.0) mg/dL Ur Leukocyte Esterase Negative (Negative) Urine RBC 6 H (0-5) /hpf Urine Mucus Rare H (None) /hpf 08/02/17 Range/Units 18:45 WBC (3.8-10.6) k/uL RBC (4.30-5.90) m/uL Hgb (13.0-17.5) gm/dL Hct (39.0-53.0) % MCV (80.0-100.0) fL MCH (25.0-35.0) pg MCHC (31.0-37.0) g/dL RDW (11.5-15.5) % Plt Count (150-450) k/uL Neutrophils % % Lymphocytes % % Monocytes % % Eosinophils % % Basophils % % Neutrophils # (1.3-7.7) k/uL Lymphocytes # (1.0-4.8) k/uL Monocytes # (0-1.0) k/uL Eosinophils # (0-0.7) k/uL Basophils # (0-0.2) k/uL Hypochromasia PT (9.0-12.0) sec INR (<1.2) APTT (22.0-30.0) sec Sodium 137 (137-145) mmol/L Potassium 4.0 (3.5-5.1) mmol/L Chloride 104 (98-107) mmol/L Carbon Dioxide 25 (22-30) mmol/L Anion Gap 8 mmol/L BUN 28 H (9-20) mg/dL Creatinine 1.57 H (0.66-1.25) mg/dL Est GFR (MDRD) Af Amer 51 (>60 ml/min/1.73 sqM) Est GFR (MDRD) Non-Af 42 (>60 ml/min/1.73 sqM) Glucose 84 (74-99) mg/dL Calcium 9.2 (8.4-10.2) mg/dL Total Bilirubin 0.8 (0.2-1.3) mg/dL AST 43 (17-59) U/L ALT 37 (21-72) U/L Alkaline Phosphatase 83 (38-126) U/L Total Protein 7.0 (6.3-8.2) g/dL Albumin 3.7 (3.5-5.0) g/dL Urine Color Urine Appearance (Clear) Urine pH (5.0-8.0) Ur Specific [place] (1.001-1.035) Urine Protein (Negative) Urine Glucose (UA) (Negative) Urine Ketones (Negative) Urine Blood (Negative) Urine Nitrite (Negative) Urine Bilirubin (Negative) Urine Urobilinogen (<2.0) mg/dL Ur Leukocyte Esterase (Negative) Urine RBC (0-5) /hpf Urine Mucus (None) /hpf - Radiology Data Radiology results: report reviewed, image reviewed CT the abdomen and pelvis with contrast report was reviewed in full. Impression by Dr. Cobos shows no acute abdominal pelvic process. A 5.7 cm abdominal aortic aneurysm is noted. Also moderate bladder distention with markedly prostate enlargement. AP view of the chest and 4 views of the right ribs were obtained and did showed a pacemaker in place. Mildly enlarged cardiac silhouette, stable in appearance. Lungs are clear and well-expanded. Pleural spaces are negative. There is no fracture or malalignment. The soft tissues are unremarkable. Impression by Dr. Cobos shows no acute process. Disposition Clinical Impression: Abdominal aortic aneurysm (AAA), Fall, Rib pain on right side Disposition: HOME SELF-CARE Condition: Good Instructions: Abdominal Aortic Aneurysm (DC), Fall Prevention for Older Adults (ED), Rib Contusion (ED) Additional Instructions: It is important that she make an appointment to follow up with the vascular surgeon for further evaluation of the aortic aneurysm. Take x-ray report and CD with you to the appointments. Follow-up with urology for further evaluation of hematuria 4/blood in the urine. Apply ice to the right ribs 20 minutes at a time at least 4 times daily. Cough and deep breathe exercises 10 times an hour while awake to prevent pneumonia. Follow-up with your primary care physician for recheck in 1-2 days. Return here immediately for any new, worsening, or concerning symptoms. Referrals: Ray Silva MD [Primary Care Provider] - 1-2 days Ghassan Ross MD [STAFF PHYSICIAN] - 1-2 days Casimiro Ignacio MD [STAFF PHYSICIAN] - 1-2 days Time of Disposition: 20:57
[2017-08-02 18:04] LABS: Appearance,Urine Clear (Clear); Bilirubin,Urine Negative (Negative); Glucose,Urine (UA) Negative (Negative); Ketones,Urine Negative (Negative); Leukocyte Esterase,Urine Negative (Negative); Mucus,Urine Rare /hpf; Nitrite,Urine Negative (Negative); Particle Count 511; Protein,Urine Trace (Negative); RBC,Urine 6 /hpf (0-5); Specific Gravity,Urine 1.007 (1.001-1.035); UA Billing (MACRO vs. MICRO) MICRO; Urobilinogen,Urine <2.0 mg/dL (<2.0)
--- NOTE | 2017-08-02 18:17 | XR ---
PROCEDURE: XR ribs RT w pa chest xray DATE AND TIME: 08/02/2017 6:09 PM REFERRING PHYSICIAN: Vani Phillip CLINICAL INDICATION: PHH, Pain TECHNIQUE: 5 views were obtained. COMPARISON: 05/31/2017 FINDINGS: Pacemaker in place. Mildly enlarged cardiac silhouette, stable in appearance. Lungs are geno ar and well expanded. Pleural spaces are negative. There is no fracture or malalignment. The soft tis sues are unremarkable. IMPRESSION: NO ACUTE PROCESS.
[2017-08-02] MEDS ORDERED: RX INFO: IV CONTRAST WAS GIVEN 1 EACH MISC MISCELLANE PRN (18:28)
[2017-08-02 18:57] LABS: Basophils % (A) 0 %; CH 28.9; CHCM 31.9; Eosinophils # (A) 0.2 k/uL (0-0.7); Eosinophils % (A) 7 %; HCT 34.1 % (39.0-53.0); HDW 2.82; HGB 11.1 gm/dL (13.0-17.5); Hypochromasia Slight; Luc # (Auto) 0.12; Luc % (Auto) 4; Lymphocytes # (A) 0.7 k/uL (1.0-4.8); Lymphocytes % (A) 22 %; MCH 29.7 pg (25.0-35.0); MCHC 32.6 g/dL (31.0-37.0); MCV 91.2 fL (80.0-100.0); Monocytes # (A) 0.3 k/uL (0-1.0); Monocytes % (A) 10 %; Neutrophils # (A) 1.8 k/uL (1.3-7.7); Neutrophils % (A) 57 %; RBC 3.74 m/uL (4.30-5.90); RDW 15.3 % (11.5-15.5); WBC 3.2 k/uL (3.8-10.6); WBC (Perox) 3.23
[2017-08-02 19:06] LABS: Calcium 9.2 mg/dL (8.4-10.2); Total Bilirubin 0.8 mg/dL (0.2-1.3)
[2017-08-02 19:10] LABS: INR 1.2 (<1.2); Partial Thromboplastin Time 25.9 sec (22.0-30.0); Prothrombin Time 11.9 sec (9.0-12.0)
[2017-08-02] MEDS ORDERED: SODIUM CHLORIDE 0.9% 500 ML IV ONE (19:19)
[2017-08-02 20:29] VITALS: BP 151/72; PULSE 52; RESP 18; TEMP 97.7
--- NOTE | 2017-08-02 20:46 | CT ---
EXAMINATION TYPE: CT abdomen pelvis w con DATE OF EXAM: 08/02/2017 COMPARISON: None. HISTORY: right side abdominal pain CT DLP: 1292 mGycm. Automated exposure control for dose reduction was used. TECHNIQUE: Helical acquisition of images was performed from the lung bases through the pelvis. CONTRAST: Performed without Oral Contrast and with IV Contrast, patient injected with 80 mL of [place] que 320. FINDINGS: VISUALIZED LUNG BASES AND PLEURAL SPACES: No significant abnormality is appreciated. LIVER/GB: No significant abnormality is appreciated. PANCREAS: No significant abnormality is seen. SPLEEN: No significant abnormality is seen. ADRENALS: No significant abnormality is seen. KIDNEYS: Prominent parapelvic cysts are seen bilaterally. There is no obstructive uropathy. No focal renal findings. PERITONEAL CAVITY: There is no pneumoperitoneum. No peritoneal fluid. RETROPERITONEAL ADENOPATHY: None visualized REPRODUCTIVE ORGANS: No significant abnormality is seen URINARY BLADDER: There is moderate urinary bladder distention and the prostate is enlarged and lobul ated. PELVIC ADENOPATHY: None visualized. OSSEOUS STRUCTURES: No significant abnormality is seen. BOWEL: No significant abnormality is seen. There is a paucity of fat within the abdomen and pelvis, making visualization of the extraperitoneal spaces difficult. The anterior abdominal wall musculature is intact. VASCULATURE: There are widespread atherosclerotic findings throughout the visualized arterial anatom y, including a 5.7 cm caliber infrarenal abdominal aortic aneurysm. There is arteriomegaly tortuosity , and intimal calcifications throughout the visualized arterial anatomy. There is also moderate cardi omegaly and coronary calcifications. IMPRESSION: 1. NO ACUTE ABDOMINAL PELVIC PROCESS. 2. HOWEVER, 5.7 CM ABDOMINAL AORTIC ANEURYSM NOTED. 3. ALSO, MODERATE BLADDER DISTENTION WITH MARKED PROSTATE ENLARGEMENT.
== END 2017-08-02 21:12 | disposition home or self-care (01) ==
LOC: EC 17:20
DX: R07.81 Pleurodynia (principal); I71.4 Abdominal aortic aneurysm, without rupture; M19.90 Unspecified osteoarthritis, unspecified site; N42.9 Disorder of prostate, unspecified; Z86.718 Personal history of other venous thrombosis and embolism; Z87.891 Personal history of nicotine dependence; Z79.82 Long term (current) use of aspirin; Z79.899 Other long term (current) drug therapy; W18.00XA Striking against unspecified object with subsequent fall, initial encounter
CPT/HCPCS: 36415; 80053; 85025; 85610; 85730; 81001; 87086; 71101; 74177; 99284; Q9967

== ENCOUNTER 2018-02-13 17:33 | Emergency (ER) | payer MEDICARE ==
[2018-02-13] MEDS ORDERED: SODIUM CHLORIDE 0.9% 1,000 ML IV STA ×2 (17:36→20:17)
--- NOTE | 2018-02-13 17:39 | ED ---
General Adult HPI - General Stated complaint: Weakness Time Seen by Provider: 02/13/18 17:34 Source: RN notes reviewed, old records reviewed - History of Present Illness Initial comments: This is an 87-year-old male the ER for evaluation of weakness, hospital. Patient is a mildly poor historian. Patient's brought in by EMS. Patient appears from EMS and patient's chart. Per EMS patient's is a difficult time with patient, difficult time transferring and moving patient, EMS doesn't have great history of reason for EMS call - Related Data Home Medications Medication Instructions Recorded Confirmed Aspirin 325 mg PO AC-SUPPER 04/03/14 02/13/18 Brimonidine Tartrate [Alphagan P 1 drops BOTH EYES QAM 04/03/14 02/13/18 0.15% Ophth Soln] Ginkgo Biloba 120 mg PO DAILY 04/03/14 02/13/18 Latanoprost Ophth [Xalatan 0.005%] 1 drops BOTH EYES HS 04/03/14 02/13/18 Oxybutynin Chloride 5 mg PO BID 04/03/14 02/13/18 Simvastatin [Zocor] 20 mg PO HS 04/03/14 02/13/18 Ubidecarenone [Coq-10] 100 mg PO HS 04/03/14 02/13/18 Vitamin B Complex 1 cap PO AC-SUPPER 04/03/14 02/13/18 Tamsulosin [Flomax] 0.4 mg PO QAM 03/29/17 02/13/18 Calcium Carbonate/Vitamin D3 1 tab PO BID 05/25/17 02/13/18 [Calcium 600-Vit D3 400 Caplet] Dorzolamide 2% [Trusopt 2%] 1 drops BOTH EYES QAM 05/25/17 02/13/18 Glucosam/Chin-Msm1/C/[place]eland/Bosw 1 tab PO BID 05/25/17 02/13/18 [Glucosamine-Chondroitin Tablet] Dimethic/Zinc Ox/Vits A,D/Aloe 1 applic TOPICAL DAILY 02/13/18 02/13/18 [A+D Zinc Oxide Cream] Metolazone [Zaroxolyn] 2.5 mg PO Q4D 02/13/18 02/13/18 Spironolactone [Aldactone] 25 mg PO DAILY 02/13/18 02/13/18 Zinc Oxide [Desitin] 1 applic TOPICAL BID PRN 02/13/18 02/13/18 Previous Rx's Medication Instructions Recorded Nitroglycerin Sl Tabs [Nitrostat] 0.4 mg SUBLINGUAL Q5M PRN #0 tab 04/02/17 Allergies Allergy/AdvReac Type Severity Reaction Status Date / Time No Known Allergies Allergy Verified 02/13/18 17:42 Review of Systems ROS Statement: Those systems with pertinent positive or pertinent negative responses have been documented in the HPI. ROS Other: All systems not noted in ROS Statement are negative. Past Medical History Past Medical History: Deep Vein Thrombosis (DVT), Eye Disorder, Hearing Disorder / Deafness, Osteoarthritis (OA), Prostate Disorder Additional Past Medical History / Comment(s): SEE DR ANDERSON'S H&P, GLAUCOMA , HX OF DVT RT LEG, USES WALKER OR CANE, FREQUENT FALLS History of Any Multi-Drug Resistant Organisms: None Reported Past Surgical History: Heart Catheterization, Joint Replacement, Pacemaker Additional Past Surgical History / Comment(s): left knee REPLACED, left leg bypass, HEART CATH X2 NO STENTS, CRESENCIO CATARACT Past Anesthesia/Blood Transfusion Reactions: No Reported Reaction Type of Cardiac Device: Permanent Pacemaker Device Placement Date:: 2016 Smoking Status: Former smoker - Past Family History Father Family Medical History: Cancer Mother Family Medical History: Hypertension, Myocardial Infarction ([place]) General Exam General appearance: alert, in no apparent distress Head exam: Present: atraumatic, normocephalic, normal inspection Eye exam: Present: normal appearance, PERRL, EOMI. Absent: scleral icterus, conjunctival injection, periorbital swelling ENT exam: Present: normal exam, mucous membranes moist Neck exam: Present: normal inspection. Absent: tenderness, meningismus, lymphadenopathy Respiratory exam: Present: normal lung sounds bilaterally. Absent: respiratory distress, wheezes, rales, rhonchi, stridor Cardiovascular Exam: Present: normal rhythm, bradycardia, normal heart sounds. Absent: systolic murmur, diastolic murmur, rubs, gallop, clicks GI/Abdominal exam: Present: soft, normal bowel sounds. Absent: distended, tenderness, guarding, rebound, rigid Extremities exam: Present: normal inspection, full ROM, normal capillary refill. Absent: tenderness, pedal edema, joint swelling, calf tenderness Back exam: Present: normal inspection Neurological exam: Present: alert, oriented X3, CN II-XII intact Psychiatric exam: Present: normal affect, normal mood Skin exam: Present: warm, dry, intact, normal color. Absent: rash Course Vital Signs 02/13/18 02/13/18 02/13/18 17:37 18:40 19:26 Temperature 97 F L Pulse Rate 56 L 76 Pulse Rate [ 56 L [employer] Member ] Respiratory 16 18 Rate Blood Pressure 100/61 120/68 O2 Sat by Pulse 95 99 Oximetry - Reevaluation(s) Reevaluation #1: 02/13/18 20:19 Patient is in no acute distress and emergency department stay Reevaluation #2: 02/13/18 20:[address] Silva, concern at home was low blood pressure. Patient has responded well to fluid bolus blood pressure targeting within normal range We'll discharge EKG Findings - EKG Comments: EKG Findings:: EKG shows bradycardia with occasional paced rhythm, rate of 54, [place] 256, QRS 92, QTc 426 Medical Decision Making - Medical Decision Making 87 male the ER for evaluation of altered mental status weakness blood pressure changes. No infection found here in the emergency room. Blood pressure improved to fluid challenge. Patient can be discharged home - Lab Data Result diagrams: 02/13/18 18:10 02/13/18 18:10 Lab Results 02/13/18 02/13/18 02/13/18 Range/Units 18:10 18:10 18:10 WBC 3.1 L (3.8-10.6) k/uL RBC 4.43 (4.30-5.90) m/uL Hgb 12.4 L (13.0-17.5) gm/dL Hct 38.0 L (39.0-53.0) % MCV 85.8 (80.0-100.0) fL MCH 28.0 (25.0-35.0) pg MCHC 32.6 (31.0-37.0) g/dL RDW 15.3 (11.5-15.5) % Plt Count 115 L (150-450) k/uL Neutrophils % 48 % Lymphocytes % 31 % Monocytes % 10 % Eosinophils % 6 % Basophils % 1 % Neutrophils # 1.5 (1.3-7.7) k/uL Lymphocytes # 1.0 (1.0-4.8) k/uL Monocytes # 0.3 (0-1.0) k/uL Eosinophils # 0.2 (0-0.7) k/uL Basophils # 0.0 (0-0.2) k/uL PT (9.0-12.0) sec INR (<1.2) APTT (22.0-30.0) sec Sodium 131 L (137-145) mmol/L Potassium 4.2 (3.5-5.1) mmol/L Chloride 98 (98-107) mmol/L Carbon Dioxide 25 (22-30) mmol/L Anion Gap 8 mmol/L BUN 35 H (9-20) mg/dL Creatinine 1.85 H (0.66-1.25) mg/dL Est GFR (CKD-EPI)AfAm 37 (>60 ml/min/1.73 sqM) Est GFR (CKD-EPI)NonAf 32 (>60 ml/min/1.73 sqM) Glucose 87 (74-99) mg/dL Calcium 9.4 (8.4-10.2) mg/dL Phosphorus 3.4 (2.5-4.5) mg/dL Magnesium 2.0 (1.6-2.3) mg/dL Total Bilirubin 0.7 (0.2-1.3) mg/dL AST 39 (17-59) U/L ALT 19 L (21-72) U/L Alkaline Phosphatase 73 (38-126) U/L Total Creatine Kinase 85 (55-170) U/L CK-MB (CK-2) 1.2 (0.0-2.4) ng/mL CK-MB (CK-2) Rel Index 1.4 Troponin I 0.041 H* (0.000-0.034) ng/mL Total Protein 7.1 (6.3-8.2) g/dL Albumin 3.4 L (3.5-5.0) g/dL Urine Color Urine Appearance (Clear) Urine pH (5.0-8.0) Ur Specific [place] (1.001-1.035) Urine Protein (Negative) Urine Glucose (UA) (Negative) Urine Ketones (Negative) Urine Blood (Negative) Urine Nitrite (Negative) Urine Bilirubin (Negative) Urine Urobilinogen (<2.0) mg/dL Ur Leukocyte Esterase (Negative) 02/13/18 02/13/18 Range/Units 18:10 18:30 WBC (3.8-10.6) k/uL RBC (4.30-5.90) m/uL Hgb (13.0-17.5) gm/dL Hct (39.0-53.0) % MCV (80.0-100.0) fL MCH (25.0-35.0) pg MCHC (31.0-37.0) g/dL RDW (11.5-15.5) % Plt Count (150-450) k/uL Neutrophils % % Lymphocytes % % Monocytes % % Eosinophils % % Basophils % % Neutrophils # (1.3-7.7) k/uL Lymphocytes # (1.0-4.8) k/uL Monocytes # (0-1.0) k/uL Eosinophils # (0-0.7) k/uL Basophils # (0-0.2) k/uL PT 11.7 (9.0-12.0) sec INR 1.2 H (<1.2) APTT 24.4 (22.0-30.0) sec Sodium (137-145) mmol/L Potassium (3.5-5.1) mmol/L Chloride (98-107) mmol/L Carbon Dioxide (22-30) mmol/L Anion Gap mmol/L BUN (9-20) mg/dL Creatinine (0.66-1.25) mg/dL Est GFR (CKD-EPI)AfAm (>60 ml/min/1.73 sqM) Est GFR (CKD-EPI)NonAf (>60 ml/min/1.73 sqM) Glucose (74-99) mg/dL Calcium (8.4-10.2) mg/dL Phosphorus (2.5-4.5) mg/dL Magnesium (1.6-2.3) mg/dL Total Bilirubin (0.2-1.3) mg/dL AST (17-59) U/L ALT (21-72) U/L Alkaline Phosphatase (38-126) U/L Total Creatine Kinase (55-170) U/L CK-MB (CK-2) (0.0-2.4) ng/mL CK-MB (CK-2) Rel Index Troponin I (0.000-0.034) ng/mL Total Protein (6.3-8.2) g/dL Albumin (3.5-5.0) g/dL Urine Color Yellow Urine Appearance Clear (Clear) Urine pH 7.0 (5.0-8.0) Ur Specific [place] 1.009 (1.001-1.035) Urine Protein Trace H (Negative) Urine Glucose (UA) Negative (Negative) Urine Ketones Negative (Negative) Urine Blood Negative (Negative) Urine Nitrite Negative (Negative) Urine Bilirubin Negative (Negative) Urine Urobilinogen <2.0 (<2.0) mg/dL Ur Leukocyte Esterase Negative (Negative) - Radiology Data Radiology results: report reviewed (Chest x-rays negative), image reviewed Disposition Clinical Impression: Bradycardia, Weakness Disposition: HOME SELF-CARE Condition: Good Instructions: Weakness (ED) Referrals: Ray Silva MD [Primary Care Provider] - 1-2 days
[2018-02-13 18:28] LABS: Basophils % (A) 1 %; Eosinophils # (A) 0.2 k/uL (0-0.7); Eosinophils % (A) 6 %; HGB 12.4 gm/dL (13.0-17.5); Lymphocytes % (A) 31 %; MCHC 32.6 g/dL (31.0-37.0); MCV 85.8 fL (80.0-100.0); Monocytes # (A) 0.3 k/uL (0-1.0); Monocytes % (A) 10 %; Neutrophils # (A) 1.5 k/uL (1.3-7.7); Neutrophils % (A) 48 %; Platelet Count 115 k/uL (150-450); RBC 4.43 m/uL (4.30-5.90); RDW 15.3 % (11.5-15.5); WBC 3.1 k/uL (3.8-10.6)
[2018-02-13 18:35] LABS: Partial Thromboplastin Time 24.4 sec (22.0-30.0)
[2018-02-13 18:37] LABS: INR 1.2 (<1.2); Prothrombin Time 11.7 sec (9.0-12.0)
[2018-02-13 18:46] LABS: Albumin 3.4 g/dL (3.5-5.0); Calcium 9.4 mg/dL (8.4-10.2); Phosphorus 3.4 mg/dL (2.5-4.5); Potassium 4.2 mmol/L (3.5-5.1); Total Bilirubin 0.7 mg/dL (0.2-1.3); Total Protein 7.1 g/dL (6.3-8.2)
[2018-02-13 18:50] LABS: Appearance,Urine Clear (Clear); Bilirubin,Urine Negative (Negative); Blood,Urine Negative (Negative); Color,Urine Yellow; Glucose,Urine (UA) Negative (Negative); Ketones,Urine Negative (Negative); Leukocyte Esterase,Urine Negative (Negative); Nitrite,Urine Negative (Negative); Protein,Urine Trace (Negative); Specific Gravity,Urine 1.009 (1.001-1.035); Urobilinogen,Urine <2.0 mg/dL (<2.0)
[2018-02-13 18:52] LABS: Creatine Kinase MB 1.2 ng/mL (0.0-2.4); Troponin I 0.041 ng/mL (0.000-0.034)
--- NOTE | 2018-02-13 19:41 | XR ---
EXAMINATION: XR chest - 3V DATE AND TIME: 02/13/2018 7:01 PM ORDERING PROVIDER: Franky Banks DO CLINICAL INDICATION: Weakness TECHNIQUE: 2 PA and 1 lateral COMPARISON: 01/01/2018 DESCRIPTION: Cardiac pacemaker and EKG leads. Moderately enlarged cardiac silhouette, stable in appea obdulia. The lungs are clear and the pleural spaces are negative. Bones and soft tissues unremarkable. IMPRESSION: NO ACUTE PROCESS.
[2018-02-13 21:49] VITALS: BP 124/80; PULSE 61; RESP 16; TEMP 97.2
== END 2018-02-13 21:48 | disposition home or self-care (01) ==
LOC: EC 17:33
DX: R53.1 Weakness (principal); R00.1 Bradycardia, unspecified; R41.82 Altered mental status, unspecified; H40.9 Unspecified glaucoma; N42.9 Disorder of prostate, unspecified; H91.90 Unspecified hearing loss, unspecified ear; Z87.891 Personal history of nicotine dependence; Z79.82 Long term (current) use of aspirin; Z79.899 Other long term (current) drug therapy; Z95.0 Presence of cardiac pacemaker; Z82.49 Family history of ischemic heart disease and other diseases of the circulatory system
CPT/HCPCS: 36415; 71046; 80053; 81003; 82550; 82553; 83735; 84100; 84484; 85025; 85610; 85730; 87040; 87086; 93005; 96360; 96361; 99285

== ENCOUNTER 2018-02-15 11:10 | Inpatient (IN) | payer MEDICARE ==
[2018-02-15] MEDS ORDERED: NITROGLYCERIN OINT 1 INCH/GM PACKET TOPICAL STA (12:02)
[2018-02-15] MEDS ORDERED: ASPIRIN 81 MG PO STA (12:02)
--- NOTE | 2018-02-15 12:06 | ED ---
General Adult HPI - General Chief complaint: Chest Pain Stated complaint: Chest Pain Time Seen by Provider: 02/15/18 11:15 Source: patient, RN notes reviewed Mode of arrival: EMS Limitations: no limitations - History of Present Illness Initial comments: This is an 87-year-old male presents emergency Department complaining of chest pain approximate one hour ago. Patient states it radiates to his arm and is mildly short of breath. Patient states he took 2 nitroglycerin after the second nitroglycerin the pain completely resolved per patient denies any diaphoresis. Patient denies any nausea. Patient denies abdominal pain patient denies any recent vomiting or diarrhea. Patient denies any recent fever chills or cough. Patient denies headache patient denies numbness weakness. Patient denies syncope or near syncopal episode. patient states he is currently chest pain and symptom-free. - Related Data Home Medications Medication Instructions Recorded Confirmed Aspirin 325 mg PO AC-SUPPER 04/03/14 02/15/18 Brimonidine Tartrate [Alphagan P 1 drops BOTH EYES QAM 04/03/14 02/15/18 0.15% Ophth Soln] Ginkgo Biloba 120 mg PO DAILY 04/03/14 02/15/18 Latanoprost Ophth [Xalatan 0.005%] 1 drops BOTH EYES HS 04/03/14 02/15/18 Oxybutynin Chloride 5 mg PO BID 04/03/14 02/15/18 Simvastatin [Zocor] 20 mg PO HS 04/03/14 02/15/18 Ubidecarenone [Coq-10] 100 mg PO HS 04/03/14 02/15/18 Vitamin B Complex 1 cap PO AC-SUPPER 04/03/14 02/15/18 Tamsulosin [Flomax] 0.4 mg PO QAM 03/29/17 02/15/18 Calcium Carbonate/Vitamin D3 1 tab PO BID 05/25/17 02/15/18 [Calcium 600-Vit D3 400 Caplet] Dorzolamide 2% [Trusopt 2%] 1 drops BOTH EYES QAM 05/25/17 02/15/18 Glucosam/Chin-Msm1/C/[place]eland/Bosw 1 tab PO BID 05/25/17 02/15/18 [Glucosamine-Chondroitin Tablet] Dimethic/Zinc Ox/Vits A,D/Aloe 1 applic TOPICAL DAILY 02/13/18 02/15/18 [A+D Zinc Oxide Cream] Metolazone [Zaroxolyn] 2.5 mg PO Q4D 02/13/18 02/15/18 Spironolactone [Aldactone] 25 mg PO DAILY 02/13/18 02/15/18 Zinc Oxide [Desitin] 1 applic TOPICAL BID PRN 02/13/18 02/15/18 Previous Rx's Medication Instructions Recorded Nitroglycerin Sl Tabs [Nitrostat] 0.4 mg SUBLINGUAL Q5M PRN #0 tab 04/02/17 Allergies Allergy/AdvReac Type Severity Reaction Status Date / Time No Known Allergies Allergy Verified 02/15/18 12:13 Review of Systems ROS Statement: Those systems with pertinent positive or pertinent negative responses have been documented in the HPI. ROS Other: All systems not noted in ROS Statement are negative. Past Medical History Past Medical History: Deep Vein Thrombosis (DVT), Eye Disorder, Hearing Disorder / Deafness, Osteoarthritis (OA), Prostate Disorder Additional Past Medical History / Comment(s): SEE DR ANDERSON'S H&P, GLAUCOMA , HX OF DVT RT LEG, USES WALKER OR CANE, [place] History of Any Multi-Drug Resistant Organisms: None Reported Past Surgical History: Heart Catheterization, Joint Replacement, Pacemaker Additional Past Surgical History / Comment(s): left knee REPLACED, left leg bypass, HEART CATH X2 NO STENTS, CRESENCIO CATARACT Past Anesthesia/Blood Transfusion Reactions: No Reported Reaction Type of Cardiac Device: Permanent Pacemaker Device Placement Date:: 2016 Past Psychological History: No Psychological Hx Reported Smoking Status: Former smoker - Past Family History Father Family Medical History: Cancer Mother Family Medical History: Hypertension, Myocardial Infarction ([place]) General Exam - General Exam Comments Initial Comments: GENERAL: Patient is well-developed and well-nourished. Patient is nontoxic and well- hydrated and is in distress. ENT: Neck is soft and supple. No significant lymphadenopathy is noted. Oropharynx is clear. Moist mucous membranes. Neck has full range of motion without eliciting any pain. EYES: The sclera were anicteric and conjunctiva were pink and moist. Extraocular movements were intact and pupils were equal round and reactive to light. Eyelids were unremarkable. PULMONARY: Unlabored respirations. Good breath sounds bilaterally. No audible rales rhonchi or wheezing was noted. CARDIOVASCULAR: There is a regular rate and rhythm without any murmurs gallops or rubs. ABDOMEN: Soft and nontender with normal bowel sounds. No palpable organomegaly was noted. There is no palpable pulsatile mass. SKIN: Skin is clear with no lesions or rashes and otherwise unremarkable. NEUROLOGIC: Patient is alert and oriented x3. Cranial nerves II through XII are grossly intact. Motor and sensory are also intact. Normal speech, volume and content. Symmetrical smile. MUSCULOSKELETAL: Normal extremities with adequate strength and full range of motion. No lower extremity swelling or edema. No calf tenderness. LYMPHATICS: No significant lymphadenopathy is noted PSYCHIATRIC: Normal psychiatric evaluation. Limitations: no limitations Course Vital Signs 02/15/18 02/15/18 02/15/18 11:12 11:55 12:31 Temperature 97.6 F Pulse Rate 133 H 62 58 L Respiratory 18 18 16 Rate Blood Pressure 167/82 171/73 148/83 O2 Sat by Pulse 94 L 96 Oximetry 02/15/18 12:57 Temperature Pulse Rate 62 Respiratory 18 Rate Blood Pressure 170/81 O2 Sat by Pulse 94 L Oximetry Medical Decision Making - Medical Decision Making EKG shows sinus rhythm at 65 bpm MD interval is 218 QRS is 86 Q-T intervals 432 QTC is 449. EKG shows occasional PACs with inverted T waves in leads V4 V5 and V6 I spoke with Dr. Martin who is on for Dr. Silva he agreed to admit the patient admitted the patient. I started the patient heparin because of the unstable angina. I continued the heparin on the floor the aspirin and Nitropaste on the floor. I wrote admitting orders. I consult cardiology. - Lab Data Result diagrams: 02/15/18 11:19 02/15/18 11:19 Lab Results 02/15/18 02/15/18 02/15/18 Range/Units 11:19 11:19 11:19 WBC 3.4 L (3.8-10.6) k/uL RBC 4.18 L (4.30-5.90) m/uL Hgb 11.1 L (13.0-17.5) gm/dL Hct 36.2 L (39.0-53.0) % MCV 86.8 (80.0-100.0) fL MCH 26.5 (25.0-35.0) pg MCHC 30.6 L (31.0-37.0) g/dL RDW 15.3 (11.5-15.5) % Plt Count 115 L (150-450) k/uL Neutrophils % 57 % Lymphocytes % 26 % Monocytes % 10 % Eosinophils % 3 % Basophils % 0 % Neutrophils # 1.9 (1.3-7.7) k/uL Lymphocytes # 0.9 L (1.0-4.8) k/uL Monocytes # 0.3 (0-1.0) k/uL Eosinophils # 0.1 (0-0.7) k/uL Basophils # 0.0 (0-0.2) k/uL PT (9.0-12.0) sec INR (<1.2) APTT (22.0-30.0) sec Sodium 134 L (137-145) mmol/L Potassium 4.3 (3.5-5.1) mmol/L Chloride 102 (98-107) mmol/L Carbon Dioxide 22 (22-30) mmol/L Anion Gap 10 mmol/L BUN 32 H (9-20) mg/dL Creatinine 1.49 H (0.66-1.25) mg/dL Est GFR (CKD-EPI)AfAm 48 (>60 ml/min/1.73 sqM) Est GFR (CKD-EPI)NonAf 41 (>60 ml/min/1.73 sqM) Glucose 81 (74-99) mg/dL Calcium 9.1 (8.4-10.2) mg/dL Magnesium 1.8 (1.6-2.3) mg/dL Total Bilirubin 0.8 (0.2-1.3) mg/dL AST 40 (17-59) U/L ALT 28 (21-72) U/L Alkaline Phosphatase 79 (38-126) U/L Total Creatine Kinase 90 (55-170) U/L CK-MB (CK-2) 1.4 (0.0-2.4) ng/mL CK-MB (CK-2) Rel Index 1.6 Troponin I 0.041 H* (0.000-0.034) ng/mL Total Protein 6.7 (6.3-8.2) g/dL Albumin 3.2 L (3.5-5.0) g/dL 02/15/18 Range/Units 11:19 WBC (3.8-10.6) k/uL RBC (4.30-5.90) m/uL Hgb (13.0-17.5) gm/dL Hct (39.0-53.0) % MCV (80.0-100.0) fL MCH (25.0-35.0) pg MCHC (31.0-37.0) g/dL RDW (11.5-15.5) % Plt Count (150-450) k/uL Neutrophils % % Lymphocytes % % Monocytes % % Eosinophils % % Basophils % % Neutrophils # (1.3-7.7) k/uL Lymphocytes # (1.0-4.8) k/uL Monocytes # (0-1.0) k/uL Eosinophils # (0-0.7) k/uL Basophils # (0-0.2) k/uL PT 11.9 (9.0-12.0) sec INR 1.3 H (<1.2) APTT 26.4 (22.0-30.0) sec Sodium (137-145) mmol/L Potassium (3.5-5.1) mmol/L Chloride (98-107) mmol/L Carbon Dioxide (22-30) mmol/L Anion Gap mmol/L BUN (9-20) mg/dL Creatinine (0.66-1.25) mg/dL Est GFR (CKD-EPI)AfAm (>60 ml/min/1.73 sqM) Est GFR (CKD-EPI)NonAf (>60 ml/min/1.73 sqM) Glucose (74-99) mg/dL Calcium (8.4-10.2) mg/dL Magnesium (1.6-2.3) mg/dL Total Bilirubin (0.2-1.3) mg/dL AST (17-59) U/L ALT (21-72) U/L Alkaline Phosphatase (38-126) U/L Total Creatine Kinase (55-170) U/L CK-MB (CK-2) (0.0-2.4) ng/mL CK-MB (CK-2) Rel Index Troponin I (0.000-0.034) ng/mL Total Protein (6.3-8.2) g/dL Albumin (3.5-5.0) g/dL Critical Care Time Critical Care Time: Yes Total Critical Care Time: 35 Disposition Clinical Impression: Unstable angina pectoris Disposition: ADMITTED IP TO THIS HOSP Referrals: Ray Silva MD [Primary Care Provider] - 1-2 days Time of Disposition: 14:13
[2018-02-15 12:53] LABS: Basophils % (A) 0 %; Eosinophils # (A) 0.1 k/uL (0-0.7); Eosinophils % (A) 3 %; HCT 36.2 % (39.0-53.0); HGB 11.1 gm/dL (13.0-17.5); Lymphocytes # (A) 0.9 k/uL (1.0-4.8); Lymphocytes % (A) 26 %; MCH 26.5 pg (25.0-35.0); MCHC 30.6 g/dL (31.0-37.0); MCV 86.8 fL (80.0-100.0); Mean Platelet Volume 8.8; Monocytes # (A) 0.3 k/uL (0-1.0); Monocytes % (A) 10 %; Neutrophils # (A) 1.9 k/uL (1.3-7.7); Neutrophils % (A) 57 %; Platelet Count 115 k/uL (150-450); RBC 4.18 m/uL (4.30-5.90); RDW 15.3 % (11.5-15.5); WBC 3.4 k/uL (3.8-10.6)
--- NOTE | 2018-02-15 12:59 | XR ---
EXAMINATION TYPE: XR chest 2V DATE OF EXAM: 02/15/2018 COMPARISON: Prior chest x-ray 02/13/2018 HISTORY: Chest pain and shortness of breath TECHNIQUE: Frontal and lateral views of the chest are obtained. FINDINGS: There is no focal air space opacity, pleural effusion, or pneumothorax seen. The cardiac silhouette size is stable. Intracardiac pacemaker leads are stable. The aorta is dense. There are ove rlying cardiac leads. The osseous structures are intact. IMPRESSION: No acute cardiopulmonary process.
[2018-02-15 13:01] LABS: INR 1.3 (<1.2); Partial Thromboplastin Time 26.4 sec (22.0-30.0); Prothrombin Time 11.9 sec (9.0-12.0)
[2018-02-15 13:02] LABS: Albumin 3.2 g/dL (3.5-5.0); Calcium 9.1 mg/dL (8.4-10.2); Magnesium 1.8 mg/dL (1.6-2.3); Potassium 4.3 mmol/L (3.5-5.1); Total Bilirubin 0.8 mg/dL (0.2-1.3); Total Protein 6.7 g/dL (6.3-8.2)
[2018-02-15 13:25] LABS: Creatine Kinase MB 1.4 ng/mL (0.0-2.4); Troponin I 0.041 ng/mL (0.000-0.034)
[2018-02-15] MEDS ORDERED: NITROGLYCERIN SL TABS 0.4 MG TAB SUBLINGUAL PRN ×2 (14:13→16:52)
[2018-02-15] MEDS ORDERED: HEPARIN SODIUM,PORCINE 5,000 UNIT/ML 1 ML VIAL IV ONE (14:16)
[2018-02-15] MEDS ORDERED: HEPARIN SOD,PORK IN 0.45% NACL 25,000 UNIT in 0.45% NACL 1 500ML.BAG IV SCH (14:30)
[2018-02-15] MEDS ORDERED: ASPIRIN 325 MG TAB PO SCH (17:30)
[2018-02-15] MEDS: B COMPLEX-VIT C-VIT E-ZINC 1 EACH TAB PO SCH (17:30)
[2018-02-15] MEDS: NITROGLYCERIN OINT 1 INCH/GM PACKET TOPICAL SCH ×2 (17:31→22:34)
[2018-02-15] MEDS: CALCIUM CARB-VIT D 500MG-200UN 1 EACH TAB PO SCH (17:31)
[2018-02-15] MEDS ORDERED: METOLAZONE 2.5 MG TAB PO SCH (18:00)
[2018-02-15 18:19] LABS: Creatine Kinase MB 1.4 ng/mL (0.0-2.4)
[2018-02-15 18:20] LABS: Troponin I 0.074 ng/mL (0.000-0.034)
--- NOTE | 2018-02-15 19:02 | HP ---
HISTORY AND PHYSICAL DATE OF ADMISSION: 02/15/2018 CHIEF COMPLAINTS: Chest pain and shortness of breath. This is an 87-year-old -Citizen Of [place] male who was recently discharged from the hospital. He was brought to the emergency room with the complaints of anterior chest pain, pressure-like pain associated with some shortness of breath and radiating to his arms. The pain started about an hour prior to coming to the ER. Patient took 2 nitroglycerins and then the pain completely resolved. In the ER the EKG showed no acute changes. Patient's CBC showed a WBC count of 3.4, hemoglobin 11.1, platelet count 115,000 and sodium 134, potassium 4.3, BUN within normal limits and creatinine 1.49. Cardiac enzymes showed slight elevation of troponin. CK-MB 1.4. Total CK 90. Troponin 0.041. Patient was admitted to the hospital for further evaluation and treatment. PAST MEDICAL HISTORY: He has had coronary artery disease and also has a pacemaker. 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 He has had a cardiac catheterization in the past. He has had joint replacement surgery. He is also known to have benign prostatic hypertrophy with obstruction and hyperlipidemia. CURRENT MEDICATIONS: 1. Aspirin 325 mg p.o. daily. 2. Oxybutynin 5 mg p.o. b.i.d. 3. Simvastatin 20 mg daily. 4. Flomax 0.4 mg p.o. daily. 5. Nitroglycerin sublingually p.r.n. 6. Aldactone 25 mg p.o. daily. 7. Zaroxolyn 2.5 mg p.o. every 4 days. ALLERGIES: NO KNOWN DRUG ALLERGIES. He does not smoke now. REVIEW OF SYSTEMS: Apparently patient does not have any headaches. Appetite has been poor lately. He has chest pain as mentioned before and also has had some difficulty in breathing. His bowels are regular. He has no polyuria and he has no difficulty in urinating and he is on Flomax. He has no neurological symptoms. PHYSICAL EXAMINATION: This patient is an 87-year-old male who is alert and oriented. There is no jaundice. There is no generalized lymphadenopathy. There are no petechiae or bruises. Temperature 97.6, pulse 62 per minute, respirations 18 per minute, blood pressure 148/83, pulse ox 94. EXAMINATION OF THE ENT: Negative. NECK: Supple. There is no jugular venous distention. There is no goiter and there is no carotid bruit. Heart is in sinus rhythm. Lungs reveal diminished breath sounds over both bases. No rales or rhonchi. ABDOMEN: Soft and nontender. No mass palpable. Examination of the lower extremities reveals no pitting edema. Neurologic examination does not reveal localizing signs. IMPRESSION: 1. Chest pain. 2. Unstable angina. 3. Elevated troponin; rule out acute myocardial infarction. 4. Hyperlipidemia. 5. Benign prostatic hypertrophy. 6. Degenerative arthritis in multiple joints. PLAN: Patient will be admitted to the hospital. His heart will be monitored with telemetry. We will get serial EKGs and cardiac enzymes and also will get a cardiology consultation. Prognosis is guarded. The diagnosis, prognosis and therapeutic plans were discussed in detail with the patient and also with his . This patient's primary care physician is Dr. Silva. I saw the patient for Dr. Silva, as I am covering him this weekend. MMODL / IJN: [id number] /
[2018-02-15] MEDS ORDERED: NON-FORMULARY DRUG (Glucosam/Chon-Msm1/C/Mang/Bosw [Glucosamine-Chondroitin Tablet] 1 TAB) PO SCH (21:00)
[2018-02-15] MEDS ORDERED: NON-FORMULARY DRUG (Ubidecarenone [Coq-10] 100 MG) PO SCH (21:00)
[2018-02-15] MEDS: ATORVASTATIN 10 MG TAB PO SCH (21:03)
[2018-02-15] MEDS: LATANOPROST 0.005% OPHTH DROPS 2.5 ML BTL BOTH EYES SCH (21:04)
[2018-02-15] MEDS: OXYBUTYNIN CHLORIDE 5 MG TAB PO SCH (21:04)
[2018-02-16 01:59] LABS: Creatine Kinase MB 1.4 ng/mL (0.0-2.4)
[2018-02-16 02:08] LABS: Troponin I 0.056 ng/mL (0.000-0.034)
[2018-02-16] MEDS: NITROGLYCERIN OINT 1 INCH/GM PACKET TOPICAL SCH ×6 (05:26→23:52)
[2018-02-16] MEDS: CALCIUM CARB-VIT D 500MG-200UN 1 EACH TAB PO SCH ×2 (05:57→17:34)
[2018-02-16] MEDS: BRIMONIDINE TARTRATE 0.2% DROPS 5 ML BTL BOTH EYES SCH (05:57)
[2018-02-16 07:02] LABS: Cholesterol 169 mg/dL (<200); HDL Cholesterol 43 mg/dL (40-60); LDL Cholesterol,Calculated 117 mg/dL (0-99); Triglycerides 45 mg/dL (<150)
[2018-02-16] MEDS ORDERED: GINKGO BILOBA 120 MG PO SCH (09:00)
[2018-02-16] MEDS: FUROSEMIDE 40 MG TAB PO SCH (09:26)
[2018-02-16] MEDS: ZINC OXIDE 20% OINT 28.4 GM TUBE TOPICAL SCH (09:26)
[2018-02-16] MEDS: ASPIRIN 325 MG TAB PO SCH (09:26)
[2018-02-16] MEDS: OXYBUTYNIN CHLORIDE 5 MG TAB PO SCH ×2 (09:26→20:21)
[2018-02-16] MEDS: TAMSULOSIN 0.4 MG CAP.ER.24H PO SCH (09:26)
[2018-02-16] MEDS: SPIRONOLACTONE 25 MG TAB PO SCH (09:26)
[2018-02-16] MEDS: DORZOLAMIDE-TIMOLOL 2-0.5% DROPS 10 ML BTL BOTH EYES SCH (09:26)
[2018-02-16] MEDS: LISINOPRIL-HCTZ 20-12.5 MG 1 EACH TAB PO SCH (09:26)
--- NOTE | 2018-02-16 12:03 | CONS ---
CONSULTATION CHIEF COMPLAINT: Chest pain. HISTORY OF PRESENT ILLNESS: This is an 87-year-old gentleman with history of cardiomyopathy, sick sinus syndrome, status post permanent pacemaker, DVT, ICD, known coronary artery disease, who presented to the hospital complaining of chest pain. He describes it as chest pressure that came on with activity and was relieved with rest. Mild to moderate intensity. Associated with diaphoresis. EKG shows sinus rhythm with extensive ST-T wave changes that were noted on prior EKGs. He has had 3 sets of troponins that are elevated at 0.04, 07 and 05. His BUN and creatinine are also elevated. Hemoglobin is 11.1. Patient's clinical presentation is consistent with non ST-segment elevation LA and patient does not wish to go through any invasive procedures and will manage with optimal medical therapy. I will treat the patient with Lipitor aspirin, nitro paste, and beta alexander. He is on IV heparin, which I am going to stop at this time and put him on subcu heparin. I reviewed his prior echocardiogram. His ejection fraction is lower 25%. PAST MEDICAL HISTORY: Significant for coronary artery disease, sick sinus syndrome, status post permanent pacemaker. Hypertension, dyslipidemia. CURRENT MEDICATIONS: Include Flomax, Aldactone, Zocor 20 daily, sublingual nitroglycerin, metolazone, Zestoretic, Lasix, aspirin. ALLERGIES: No known drug allergies. FAMILY HISTORY: Negative for premature coronary artery disease. SOCIAL HISTORY: Negative for current smoking, ETOH abuse or history of drug abuse. REVIEW OF SYSTEMS: HEENT is unremarkable. Cardiac as described above. Respiratory as described above. GI negative. Genitourinary negative. Allergy negative. Skin negative. Hematological: Negative. Musculoskeletal significant for arthritis. Psychosocial negative. Endocrine negative. Constitutional negative. Derm negative. Oncological negative. Rest of the system review is not relevant. PHYSICAL EXAM: Patient is comfortable at rest. Vital signs are stable. There is no jugular venous distention. Carotid upstroke is normal. There is no bruit. Chest exam reveals good air entry bilaterally. Heart exam reveals first and second heart sounds. An ejection systolic murmur in the aortic area. Abdomen is soft. Exam of extremities did not reveal any edema. Peripheral pulses are palpable. LABS: Show that the potassium is 4.3, creatinine is 1.4, tropes are mildly elevated. Hemoglobin is 11.1. EKG is abnormal as described above. ASSESSMENT: 1. Non ST-segment elevation myocardial infarction. 2. Cardiomyopathy with history of congestive heart failure. 3. Sick sinus syndrome, status post permanent pacemaker. PLAN: We will treat the patient with optimal medical therapy. Hopefully can be discharged home over the next 24 to 48 hours. BEV / FELISHA: [id number] /
[2018-02-16] MEDS: METOPROLOL SUCCINATE (ER) 25 MG TAB.ER.24H PO SCH (12:53)
[2018-02-16] MEDS: B COMPLEX-VIT C-VIT E-ZINC 1 EACH TAB PO SCH (17:34)
[2018-02-16] MEDS: ATORVASTATIN 10 MG TAB PO SCH (20:21)
[2018-02-16] MEDS: LATANOPROST 0.005% OPHTH DROPS 2.5 ML BTL BOTH EYES SCH (20:21)
--- NOTE | 2018-02-16 21:00 | PN ---
PROGRESS NOTE DATE OF SERVICE: 02/16/2018 This is an 87-year-old gentleman who was brought to the emergency room with chest pain. The patient had anterior pressure-like chest pain and he took 2 nitroglycerin and the pain completely resolved, but in the ER he was found to have a slightly elevated troponin and patient was admitted to the hospital for further evaluation and treatment. The patient's heart is being monitored with telemetry and serial EKGs and cardiac enzymes were obtained and cardiac enzymes seem to be within normal limits and cardiology consultation has been requested and he is going to be seen by the [facility] today. Otherwise, his vital signs are stable. He denies any chest pain now and there is no acute cardio or respiratory problems. Prognosis is guarded. The diagnosis, prognosis and therapeutic plans were discussed in detail with the patient today. MMKINJALL / DORETHAN: [id number] /
[2018-02-17] MEDS: BRIMONIDINE TARTRATE 0.2% DROPS 5 ML BTL BOTH EYES SCH (09:06)
[2018-02-17] MEDS: CALCIUM CARB-VIT D 500MG-200UN 1 EACH TAB PO SCH ×2 (09:06→17:25)
[2018-02-17] MEDS: ASPIRIN 325 MG TAB PO SCH (09:06)
[2018-02-17] MEDS: FUROSEMIDE 40 MG TAB PO SCH (09:08)
[2018-02-17] MEDS: LISINOPRIL-HCTZ 20-12.5 MG 1 EACH TAB PO SCH (09:08)
[2018-02-17] MEDS: METOPROLOL SUCCINATE (ER) 25 MG TAB.ER.24H PO SCH (09:09)
[2018-02-17] MEDS: OXYBUTYNIN CHLORIDE 5 MG TAB PO SCH ×2 (09:09→21:28)
[2018-02-17] MEDS: TAMSULOSIN 0.4 MG CAP.ER.24H PO SCH (09:10)
[2018-02-17] MEDS: ZINC OXIDE 20% OINT 28.4 GM TUBE TOPICAL SCH (09:11)
[2018-02-17] MEDS: SPIRONOLACTONE 25 MG TAB PO SCH (09:12)
[2018-02-17] MEDS: DORZOLAMIDE-TIMOLOL 2-0.5% DROPS 10 ML BTL BOTH EYES SCH (09:12)
--- NOTE | 2018-02-17 09:40 | PN ---
PROGRESS NOTE Enmanuel is an 87-year-old gentleman who was admitted to hospital with unstable angina. This morning, patient is feeling better. Denies any chest pain. He had a non ST- segment elevation [place] and opted for medical therapy. He had an echocardiogram at last visit that showed severe LV systolic dysfunction. CURRENT MEDICATIONS: Include aspirin, Lipitor, Lasix and Zaroxolyn, Zestoretic, Toprol, nitroglycerin paste, and Aldactone. PHYSICAL EXAMINATION: On exam, comfortable at rest. Vital signs are stable. There is no jugular venous distention. Chest exam reveals good air entry bilaterally. Heart exam reveals first and second heart sounds. No gallop. Has a systolic murmur at the apex. Abdomen is soft. Exam of extremities did not reveal edema. Peripheral pulses are felt. ASSESSMENT: 1. Acute non ST-segment elevation myocardial infarction. 2. Ischemic cardiomyopathy. 3. Dyslipidemia. 4. Hypertension. PLAN: Patient will continue with current medications. Possibly discharge home tomorrow morning. MMODL / IJN: [id number] /
[2018-02-17] MEDS: NITROGLYCERIN OINT 1 INCH/GM PACKET TOPICAL SCH ×2 (11:28→17:26)
[2018-02-17] MEDS: B COMPLEX-VIT C-VIT E-ZINC 1 EACH TAB PO SCH (17:25)
--- NOTE | 2018-02-17 19:04 | PN ---
PROGRESS NOTE DATE OF SERVICE: 02/17/2018 This 87-year-old male who was admitted with chest pain which relieved with nitroglycerin, but in the ER there was some elevation of the troponin and patient was admitted to the hospital for further evaluation and treatment. His heart being monitored with telemetry and also serial EKGs and cardiac enzymes were obtained. The patient was seen by [facility] in consultation. The patient apparently has ischemic cardiomyopathy and Cardiology is following the patient. His vital signs are stable. He is more awake and he has had no chest pain since admission and his vital signs are stable. Heart is in sinus rhythm. Lungs are clear to auscultation and percussion. Overall prognosis is guarded. We will continue current medications and his primary acute care physician, Dr. Silva, will be back tomorrow and outpatient and he will assume care of the patient starting tomorrow. BEV / FELISHA: [id number] /
[2018-02-17] MEDS: ATORVASTATIN 10 MG TAB PO SCH (21:28)
[2018-02-17] MEDS: LATANOPROST 0.005% OPHTH DROPS 2.5 ML BTL BOTH EYES SCH (21:28)
[2018-02-18] MEDS: NITROGLYCERIN OINT 1 INCH/GM PACKET TOPICAL SCH ×5 (05:49→22:32)
[2018-02-18] MEDS: FUROSEMIDE 40 MG TAB PO SCH (08:30)
[2018-02-18] MEDS: ASPIRIN 325 MG TAB PO SCH (08:30)
[2018-02-18] MEDS: TAMSULOSIN 0.4 MG CAP.ER.24H PO SCH (08:30)
[2018-02-18] MEDS: METOPROLOL SUCCINATE (ER) 25 MG TAB.ER.24H PO SCH (08:30)
[2018-02-18] MEDS: OXYBUTYNIN CHLORIDE 5 MG TAB PO SCH ×2 (08:30→20:39)
[2018-02-18] MEDS: SPIRONOLACTONE 25 MG TAB PO SCH (08:30)
[2018-02-18] MEDS: CALCIUM CARB-VIT D 500MG-200UN 1 EACH TAB PO SCH ×2 (08:30→17:44)
[2018-02-18] MEDS: BRIMONIDINE TARTRATE 0.2% DROPS 5 ML BTL BOTH EYES SCH (08:31)
[2018-02-18] MEDS: DORZOLAMIDE-TIMOLOL 2-0.5% DROPS 10 ML BTL BOTH EYES SCH (08:31)
[2018-02-18] MEDS: ZINC OXIDE 20% OINT 28.4 GM TUBE TOPICAL SCH (08:32)
--- NOTE | 2018-02-18 11:52 | P.PN ---
Subjective Progress Note Date: 02/18/18 Principal diagnosis: Non-STEMI This is a pleasant -[place] gentleman who presented to the hospital with a non-ST elevation myocardial infarction. Patient opted for maximization of medical therapy. He was seen and examined this morning, denied any chest discomfort, breathing has been stable. Patient did have an echocardiogram with Doppler study performed on his last visit here which revealed severe LV systolic dysfunction. Blood pressure this morning 118/50 heart rate in the 50s , afebrile, 98% on 2 L of oxygen. Objective - Vital Signs Vital signs: Vital Signs Temp 96.9 F L 02/18/18 08:00 Pulse 59 L 02/18/18 08:00 Resp 18 02/18/18 08:00 BP 118/53 02/18/18 08:00 Pulse Ox 96 02/18/18 08:27 Intake & Output 02/17/18 02/18/18 02/18/18 18:59 06:59 18:59 Intake Total 708 660 Output Total 200 Balance 708 -200 660 Weight 73.5 kg Intake: Oral 708 660 Output: Urine 200 Other: # Voids 2 1 - Exam PHYSICAL EXAMINATION: HEENT: Head is atraumatic, normocephalic. Pupils equal, round. Neck is supple. There is no elevated jugular venous pressure. HEART EXAMINATION: Heart S1 and S2 systolic murmur is heard. CHEST EXAMINATION: Lungs are clear to auscultation and precussion. No chest wall tenderness is noted on palpation or with deep breathing. ABDOMEN: Soft, nontender. Bowel sounds are heard. No organomegaly noted. EXTREMITIES: 2+ peripheral pulses with no evidence of peripheral edema and no calf tenderness noted. NEUROLOGIC patient is awake, alert and oriented -3. . - Labs CBC & Chem 7: 02/15/18 11:19 02/15/18 11:19 Assessment and Plan Plan: Assessment and plan #1 non-ST elevation myocardial infarction, patient opts for maximal medical therapy #2 ischemic cardiomyopathy #3 hyperlipidemia #4 hypertension Plan We will decrease the patient's aspirin 81 mg, continue Lipitor, Lasix, lisinopril, metoprolol, and Aldactone. Patient may be able to be discharged primary and we'll make a follow-up appointment post discharge. DNP note has been reviewed, I agree with a documented findings and plan of care. Patient was seen and examined.
[2018-02-18 13:43] LABS: Basophils % (A) 1 %; Eosinophils # (A) 0.2 k/uL (0-0.7); Eosinophils % (A) 6 %; HCT 34.3 % (39.0-53.0); HGB 11.3 gm/dL (13.0-17.5); Lymphocytes % (A) 26 %; MCH 28.6 pg (25.0-35.0); MCHC 32.8 g/dL (31.0-37.0); MCV 87.3 fL (80.0-100.0); Mean Platelet Volume 8.4; Monocytes # (A) 0.3 k/uL (0-1.0); Monocytes % (A) 9 %; Neutrophils # (A) 2.1 k/uL (1.3-7.7); Neutrophils % (A) 55 %; Platelet Count 111 k/uL (150-450); RBC 3.93 m/uL (4.30-5.90); RDW 15.2 % (11.5-15.5); WBC 3.9 k/uL (3.8-10.6)
[2018-02-18 14:05] LABS: Calcium 9.4 mg/dL (8.4-10.2); Potassium 4.1 mmol/L (3.5-5.1)
[2018-02-18] MEDS: B COMPLEX-VIT C-VIT E-ZINC 1 EACH TAB PO SCH (17:44)
[2018-02-18] MEDS: ATORVASTATIN 10 MG TAB PO SCH (20:39)
[2018-02-18] MEDS: LATANOPROST 0.005% OPHTH DROPS 2.5 ML BTL BOTH EYES SCH (20:39)
[2018-02-18] MEDS: LISINOPRIL 5 MG TAB PO SCH (20:39)
--- NOTE | 2018-02-18 23:38 | PN ---
PROGRESS NOTE CHIEF COMPLAINT: Re-evaluation. HISTORY OF PRESENT ILLNESS: This gentleman 87 years of age was admitted to the hospital with some chest pain. He has known history of coronary artery disease and atherosclerotic heart disease. The patient has had some elevation in troponins. The patient was seen by Cardiology, feel the patient has non-ST elevated myocardial infarction. The patient denies any further chest pains. His breathing is adequate. The patient denies any other symptoms. He just has generalized weakness though. The patient feels he is strong enough to go home. Which I believe is probably not appropriate, we will however, have physical therapy ambulate him and see how he does. If patient remains stable, we will be able to discharge him home. The patient's diuretics have been readjusted. His Zaroxolyn is being discontinued. REVIEW OF SYSTEMS: NEURO: Denies any headaches, dizziness. Psych no anxiety. Cardiac: Denies chest pain, angina, palpitations. Respiratory: Denies shortness of breath, orthopnea. GI no nausea, vomiting, diarrhea. GI no nausea, vomiting, abdominal pain, diarrhea. no symptoms. Has some incontinence. Extremities denies pain. Constitutional: No fever, chills. PHYSICAL EXAMINATION: Elderly gentleman at present in no distress. Vital signs revealed temperature 96.9, pulse 59, respirations 16, blood pressure 118/53, and O2 98% on 2 L. HEENT: Normocephalic. Neck no JVD. CHEST: Clear to auscultation with mild decreased air flow at the bases. Cardiac: Normal S1, S2 with no gallops. Systolic murmur 2/6 left sternal border. ABDOMEN: Soft. Bowel sounds are active. Extremities reveal no edema. Neurological awake, alert, oriented to place, person. Moves both upper extremities. LABORATORY ASSESSMENT: Hemoglobin 11.3. Electrolytes normal. BUN up to 52, creatinine 1.92. ASSESSMENT: 1. Coronary artery disease, status post subendocardial myocardial infarction. 2. Hypertensive cardiovascular disease. 3. Chronic kidney disease stage 3. 4. Congestive cardiac failure, secondary to systolic and diastolic dysfunction. 5. Debility. PLAN: The patient at present is stable. Continue present medical regimen. Potential discharge home in the next 24 hours. Zaroxolyn will be discontinued. Patient's prognosis remains guarded. MMODL / IJN: [id number] /
[2018-02-19] MEDS: NITROGLYCERIN OINT 1 INCH/GM PACKET TOPICAL SCH ×4 (04:11→20:00)
[2018-02-19 06:09] LABS: Basophils % (A) 0 %; Eosinophils # (A) 0.2 k/uL (0-0.7); Eosinophils % (A) 5 %; HCT 34.3 % (39.0-53.0); Lymphocytes # (A) 0.9 k/uL (1.0-4.8); Lymphocytes % (A) 25 %; MCH 28.1 pg (25.0-35.0); MCHC 32.1 g/dL (31.0-37.0); MCV 87.8 fL (80.0-100.0); Mean Platelet Volume 8.3; Monocytes # (A) 0.3 k/uL (0-1.0); Monocytes % (A) 8 %; Neutrophils % (A) 58 %; Platelet Count 113 k/uL (150-450); RBC 3.91 m/uL (4.30-5.90); WBC 3.5 k/uL (3.8-10.6)
[2018-02-19] MEDS: CALCIUM CARB-VIT D 500MG-200UN 1 EACH TAB PO SCH ×2 (06:24→08:16)
[2018-02-19 06:32] LABS: Calcium 9.5 mg/dL (8.4-10.2); Potassium 4.4 mmol/L (3.5-5.1)
[2018-02-19] MEDS: BRIMONIDINE TARTRATE 0.2% DROPS 5 ML BTL BOTH EYES SCH (08:13)
[2018-02-19] MEDS: OXYBUTYNIN CHLORIDE 5 MG TAB PO SCH ×2 (08:14→21:24)
[2018-02-19] MEDS: FUROSEMIDE 40 MG TAB PO SCH (08:14)
[2018-02-19] MEDS: DORZOLAMIDE-TIMOLOL 2-0.5% DROPS 10 ML BTL BOTH EYES SCH (08:14)
[2018-02-19] MEDS: B COMPLEX-VIT C-VIT E-ZINC 1 EACH TAB PO SCH (08:14)
[2018-02-19] MEDS: LISINOPRIL 5 MG TAB PO SCH (08:15)
[2018-02-19] MEDS: SPIRONOLACTONE 25 MG TAB PO SCH (08:15)
[2018-02-19] MEDS: METOPROLOL SUCCINATE (ER) 25 MG TAB.ER.24H PO SCH (08:15)
[2018-02-19] MEDS: ASPIRIN 81 MG PO SCH (08:15)
[2018-02-19] MEDS: TAMSULOSIN 0.4 MG CAP.ER.24H PO SCH (08:16)
[2018-02-19] MEDS: ZINC OXIDE 20% OINT 28.4 GM TUBE TOPICAL SCH (12:34)
--- NOTE | 2018-02-19 12:53 | P.DS ---
Providers Date of admission: 02/15/18 14:13 Attending physician: Abiodun Martin Consults: 02/15/18 14:13 Consult Physician Urgent Consulting Provider: [facility] Consult Reason/Comments: Unstable angina Do you want consulting provider notified?: Yes Primary care physician: Ray Silva [place] Hospital Course: Hospital course: This 87-year-old gentleman presented to the emergency room with chest pain. The patient has known history of atherosclerotic heart disease and coronary artery disease. He had elevated troponins. Patient was seen by cardiology. It was felt the patient had a subendocardial TX. The patient has a history of hypertension long-standing with previous CVA peripheral arterial disease and chronic kidney disease secondary to atherosclerosis. The patient basically has been progressively worsening with declining health status and weakness. The patient is cared to bed status. He is not ambulatory much. After recent hospitalization and rehab the patient had recovered enough that he was mobile at home. In fact had seen him in the office once. The patient does have home care. At present the patient needs assistance to get out of bed to the chair. The patient ambulation is very limited. Patient is recommended rehabilitation. He has had no further angina. He has had congestive cardiac failure which is improved. The patient the time of discharge is stable. Prognosis remains guarded. Medications as reconciled. Patient will have lab evaluation of electrolytes BUN creatinine weekly 2. He does have mild chronic anemia. Final diagnosis to include 1. Subendocardial myocardial infarction 2. Hypertensive cardiovascular disease 3. Coronary arterial disease 4. Remote history of CVA 5. Peripheral arterial disease 6. Dilated ischemic cardiomyopathy 7. Chronic Congestive cardiac failure secondary to systolic and diastolic dysfunction 8. Chronic kidney disease stage III 9. Anemia chronic disease 10. Chronic atrial fibrillation Plan - Discharge Summary Discharge Rx Participant: No New Discharge Prescriptions: New Aspirin 81 mg PO DAILY chew Lisinopril [Zestril] 5 mg PO DAILY #0 tab Metoprolol Succinate (ER) [Toprol XL] 25 mg PO DAILY tab.er.24h Zinc Oxide 20% Oint 1 applic TOPICAL DAILY applic Continue Brimonidine Tartrate [Alphagan P 0.15% Ophth Soln] 1 drops BOTH EYES QAM Ubidecarenone [Coq-10] 100 mg PO HS Simvastatin [Zocor] 20 mg PO HS Vitamin B Complex 1 cap PO AC-SUPPER Latanoprost Ophth [Xalatan 0.005%] 1 drops BOTH EYES HS Ginkgo Biloba 120 mg PO DAILY Oxybutynin Chloride 5 mg PO BID Tamsulosin [Flomax] 0.4 mg PO QAM Nitroglycerin Sl Tabs [Nitrostat] 0.4 mg SUBLINGUAL Q5M PRN #0 tab PRN Reason: Chest Pain Glucosam/Chin-Msm1/C/Leland/Bosw [Glucosamine-Chondroitin Tablet] 1 tab PO BID Calcium Carbonate/Vitamin D3 [Calcium 600-Vit D3 400 Caplet] 1 tab PO BID Spironolactone [Aldactone] 25 mg PO DAILY Dimethic/Zinc Ox/Vits A,D/Aloe [A and D Diaper Rash Cream] 1 applic TOPICAL DAILY Furosemide [Lasix] 40 mg PO DAILY Dorzolamide/Timolol/Pf [Cosopt Pf 2%/5% Ophth Droperette] 1 drop BOTH EYES DAILY Discontinued Aspirin 325 mg PO AC-SUPPER Metolazone [Zaroxolyn] 2.5 mg PO MOFR Lisinopril-Hctz 20-12.5 mg [Zestoretic 20-12.5] 1 tab PO DAILY Discharge Medication List Brimonidine Tartrate [Alphagan P 0.15% Ophth Soln] 1 drops BOTH EYES QAM [History] Ginkgo Biloba 120 mg PO DAILY 04/03/14 [History] Latanoprost Ophth [Xalatan 0.005%] 1 drops BOTH EYES HS 04/03/14 [History] Oxybutynin Chloride 5 mg PO BID 04/03/14 [History] Simvastatin [Zocor] 20 mg PO HS 04/03/14 [History] Ubidecarenone [Coq-10] 100 mg PO HS 04/03/14 [History] Vitamin B Complex 1 cap PO AC-SUPPER 04/03/14 [History] Tamsulosin [Flomax] 0.4 mg PO QAM 03/29/17 [History] Nitroglycerin Sl Tabs [Nitrostat] 0.4 mg SUBLINGUAL Q5M PRN #0 tab 04/02/17 [Rx] Calcium Carbonate/Vitamin D3 [Calcium 600-Vit D3 400 Caplet] 1 tab PO BID [History] Glucosam/Chin-Msm1/C/Leland/Bosw [Glucosamine-Chondroitin Tablet] 1 tab PO BID [History] Dimethic/Zinc Ox/Vits A,D/Aloe [A and D Diaper Rash Cream] 1 applic TOPICAL DAILY 02/13/18 [History] Spironolactone [Aldactone] 25 mg PO DAILY 02/13/18 [History] Dorzolamide/Timolol/Pf [Cosopt Pf 2%/5% Ophth Droperette] 1 drop BOTH EYES DAILY 02/15/18 [History] Furosemide [Lasix] 40 mg PO DAILY 02/15/18 [History] Aspirin 81 mg PO DAILY chew 02/19/18 [Rx] Lisinopril [Zestril] 5 mg PO DAILY #0 tab 02/19/18 [Rx] Metoprolol Succinate (ER) [Toprol XL] 25 mg PO DAILY tab.er.24h 02/19/18 [Rx] Zinc Oxide 20% Oint 1 applic TOPICAL DAILY applic 02/19/18 [Rx] Follow up Appointment(s)/Referral(s): Ray Silva MD [Primary Care Provider] - 1-2 days Patient Instructions/Handouts: Angina (DC)
[2018-02-19 13:29] VITALS: BMI 22.2
--- NOTE | 2018-02-19 13:44 | P.PN ---
Subjective Progress Note Date: 02/19/18 Principal diagnosis: NSTEMI This is a pleasant 87-year-old -[place] gentleman who presented to the hospital with a non-ST elevation myocardial infarction. Patient has opted for maximized medical therapy. He was seen and examined this morning, denied any chest discomfort, breathing has been stable. Patient did have an echocardiogram with Doppler study performed on his last visit here which revealed severe LV systolic dysfunction. Vital signs are stable with a blood pressure of 138/96 and subsequent blood pressure of 117/55 after medications. Heart rates in the 50s. Laboratory values were reviewed and showed hemoglobin of 11, potassium 4.4 and creatinine of 1.8. He is currently on aspirin 81 mg by mouth daily, atorvastatin 10 mg by mouth daily at bedtime, Lasix 40 mg by mouth daily, lisinopril 50 mg by mouth daily, metoprolol succinate 25 mg by mouth daily and Aldactone 25 mg by mouth daily. Objective - Vital Signs Vital signs: Vital Signs Temp 96.7 F L 02/19/18 12:00 Pulse 54 L 02/19/18 12:00 Resp 16 02/19/18 12:00 BP 117/55 02/19/18 12:00 Pulse Ox 97 02/19/18 12:00 Intake & Output 02/18/18 02/19/18 02/19/18 18:59 06:59 18:59 Intake Total 1370 20 450 Output Total 200 Balance 1370 -180 450 Weight 74.5 kg 74.5 kg Intake: IV 20 0.9 20 Oral 1370 450 Output: Urine 200 Other: Voiding Method Urinal Urinal # Voids 380 - Exam PHYSICAL EXAMINATION: HEENT: Head is atraumatic, normocephalic. Pupils equal, round. Neck is supple. There is no elevated jugular venous pressure. HEART EXAMINATION: Heart regular, S1 and S2 with a systolic murmur. CHEST EXAMINATION: Lungs are clear to auscultation and precussion. No chest wall tenderness is noted on palpation or with deep breathing. ABDOMEN: Soft, nontender. Bowel sounds are heard. No organomegaly noted. EXTREMITIES: 2+ peripheral pulses with no evidence of peripheral edema and no calf tenderness noted. NEUROLOGIC patient is awake, alert and oriented x3. - Labs CBC & Chem 7: 02/19/18 05:50 02/19/18 05:50 Labs: Abnormal Lab Results - Last 24 Hours (Table) 02/18/18 02/18/18 02/19/18 Range/Units 13:17 13:17 05:50 WBC 3.5 L (3.8-10.6) k/uL RBC 3.93 L 3.91 L (4.30-5.90) m/uL Hgb 11.3 L 11.0 L (13.0-17.5) gm/dL Hct 34.3 L 34.3 L (39.0-53.0) % Plt Count 111 L 113 L (150-450) k/uL Lymphocytes # 0.9 L (1.0-4.8) k/uL Sodium (137-145) mmol/L BUN 52 H (9-20) mg/dL Creatinine 1.92 H (0.66-1.25) mg/dL 02/19/18 Range/Units 05:50 WBC (3.8-10.6) k/uL RBC (4.30-5.90) m/uL Hgb (13.0-17.5) gm/dL Hct (39.0-53.0) % Plt Count (150-450) k/uL Lymphocytes # (1.0-4.8) k/uL Sodium 136 L (137-145) mmol/L BUN 54 H (9-20) mg/dL Creatinine 1.80 H (0.66-1.25) mg/dL Assessment and Plan Assessment: #1 non-ST elevation myocardial infarction, patient opts for maximal medical therapy #2 ischemic cardiomyopathy #3 hyperlipidemia #4 hypertension Plan: From 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 Patient is stable for discharge home and will follow- up as an outpatient. The above dictated assessment and findings were discussed with signing physician. The impression and plan of care have been directed as dictated. Denise Hinojosa, Nurse Practitioner, acting as scribe for signing physician.
[2018-02-19] MEDS: ATORVASTATIN 10 MG TAB PO SCH (21:24)
[2018-02-19] MEDS: LATANOPROST 0.005% OPHTH DROPS 2.5 ML BTL BOTH EYES SCH (21:24)
[2018-02-19 21:40] LABS: Glucose,Whole Blood 131 mg/dL (75-99)
[2018-02-19 22:58] LABS: Albumin 2.9 g/dL (3.5-5.0); Calcium 9.3 mg/dL (8.4-10.2); Magnesium 1.9 mg/dL (1.6-2.3); Potassium 4.3 mmol/L (3.5-5.1); Total Bilirubin 0.3 mg/dL (0.2-1.3); Total Protein 6.2 g/dL (6.3-8.2)
[2018-02-20] MEDS: NITROGLYCERIN OINT 1 INCH/GM PACKET TOPICAL SCH ×2 (05:28→11:28)
[2018-02-20] MEDS: CALCIUM CARB-VIT D 500MG-200UN 1 EACH TAB PO SCH (06:14)
[2018-02-20] MEDS: TAMSULOSIN 0.4 MG CAP.ER.24H PO SCH (08:39)
[2018-02-20] MEDS: LISINOPRIL 5 MG TAB PO SCH (08:39)
[2018-02-20] MEDS: SPIRONOLACTONE 25 MG TAB PO SCH (08:39)
[2018-02-20] MEDS: FUROSEMIDE 40 MG TAB PO SCH (08:39)
[2018-02-20] MEDS: METOPROLOL SUCCINATE (ER) 25 MG TAB.ER.24H PO SCH (08:39)
[2018-02-20] MEDS: OXYBUTYNIN CHLORIDE 5 MG TAB PO SCH (08:39)
[2018-02-20] MEDS: ASPIRIN 81 MG PO SCH (08:39)
[2018-02-20] MEDS: BRIMONIDINE TARTRATE 0.2% DROPS 5 ML BTL BOTH EYES SCH (08:41)
[2018-02-20] MEDS: DORZOLAMIDE-TIMOLOL 2-0.5% DROPS 10 ML BTL BOTH EYES SCH (08:41)
--- NOTE | 2018-02-20 11:21 | P.PN ---
Subjective Progress Note Date: 02/20/18 Principal diagnosis: Non-STEMI This is a pleasant -[place] gentleman who presented to the hospital with a non-ST elevation myocardial infarction. Patient opted for maximization of medical therapy. He was seen and examined this morning, denied any chest discomfort, breathing has been stable. Patient did have an echocardiogram with Doppler study performed on his last visit here which revealed severe LV systolic dysfunction. Blood pressure this morning 118/50 heart rate in the 50s , afebrile, 98% on 2 L of oxygen. 02/20/2018 Patient was seen and examined this morning, hemodynamically stable. Blood pressure 122/60 with a heart rate in the 60s. 97% on room air. Sodium 136, potassium 4.3, BUN 57, creatinine 1.9, magnesium 1.9. Anticipating discharge today. Objective - Vital Signs Vital signs: Vital Signs Temp 97.4 F L 02/20/18 03:37 Pulse 67 02/20/18 03:37 Resp 16 02/20/18 03:37 BP 122/64 02/20/18 03:37 Pulse Ox 97 02/20/18 03:37 Intake & Output 02/19/18 02/20/18 02/20/18 18:59 06:59 18:59 Intake Total 800 20 180 Balance 800 20 180 Weight 74.5 kg 77.5 kg Intake: IV 20 0.9 20 Oral 800 180 Other: Voiding Method Urinal Urinal Diaper Incontinent - Exam PHYSICAL EXAMINATION: HEENT: Head is atraumatic, normocephalic. Pupils equal, round. Neck is supple. There is no elevated jugular venous pressure. HEART EXAMINATION: Heart S1 and S2 systolic murmur is heard. CHEST EXAMINATION: Lungs are clear to auscultation and precussion. No chest wall tenderness is noted on palpation or with deep breathing. ABDOMEN: Soft, nontender. Bowel sounds are heard. No organomegaly noted. EXTREMITIES: 2+ peripheral pulses with no evidence of peripheral edema and no calf tenderness noted. NEUROLOGIC patient is awake, alert and oriented -3. . - Labs CBC & Chem 7: 02/19/18 05:50 02/19/18 22:24 Labs: Abnormal Lab Results - Last 24 Hours (Table) 02/19/18 02/19/18 Range/Units 21:38 22:24 Sodium 136 L (137-145) mmol/L BUN 57 H (9-20) mg/dL Creatinine 1.90 H (0.66-1.25) mg/dL POC Glucose (mg/dL) 131 H (75-99) mg/dL Total Protein 6.2 L (6.3-8.2) g/dL Albumin 2.9 L (3.5-5.0) g/dL Assessment and Plan Plan: Assessment and plan #1 non-ST elevation myocardial infarction, patient opts for maximal medical therapy #2 ischemic cardiomyopathy #3 hyperlipidemia #4 hypertension Plan From cardiology's perspective, patient may be able to be discharged once cleared by the primary. We will make him a follow-up appointment in the office post discharge. DNP note has been reviewed, I agree with a documented findings and plan of care. Patient was seen and examined.
[2018-02-20] MEDS: ZINC OXIDE 20% OINT 28.4 GM TUBE TOPICAL SCH (11:28)
[2018-02-20 13:25] VITALS: BP 93/52; PULSE 70; RESP 18; TEMP 98.5
--- NOTE | 2018-02-21 00:08 | PN ---
PROGRESS NOTE ATTENDING PHYSICIAN: Dr. Caprice Silva. CHIEF COMPLAINT: Re-evaluation. HISTORY OF PRESENT ILLNESS: This is an 87-year-old gentleman who was admitted to the hospital with chest pain. The patient is felt to have subendocardial PR. The patient has remained stable subsequently. No interventions. The patient has underlying history of atherosclerotic heart disease, previous CVA, peripheral arterial disease, hyperlipidemia and chronic kidney disease. The patient is fairly disabled and debilitated. He does get out of bed with some help. The patient is recommended rehab. He is planned for discharge to rehab today. REVIEW OF SYSTEMS: NEURO: Denies any headaches, dizziness. PSYCH: No anxiety. CARDIAC: No chest pain, angina, palpitation. RESPIRATORY: No shortness of breath, cough, hemoptysis. GI: No nausea, vomiting, abdominal pain, diarrhea. : No symptoms of dysuria, hematuria, urgency, frequency. Does have some incontinence. EXTREMITIES: Denies pain, edema. CONSTITUTIONAL: No fever, chills. GENERAL: The patient at the time of my evaluation was noted to be needing assistance to be fed. When asked why of the patient, he says he just needed some help. I believe the patient should be able to feed himself. PHYSICAL EXAMINATION: Pleasant gentleman in no distress. Vital signs reveal temperature 97.8, pulse 62, respirations 16, blood pressure 113/56, pulse ox of 98% on room air. HEENT: Normocephalic. NECK: No JVD. CHEST: Clear to auscultation with mild decreased air flow at the right base. CARDIAC: Distant heart sounds, S1, S2 with no gallops. Irregular rhythm. Systolic murmur 2/6 left sternal border. ABDOMEN: Soft. Bowel sounds present. Extremities reveal no edema. NEUROLOGICAL: Awake, alert, oriented to place, person. Moves both upper and lower extremities adequately. LABORATORY ASSESSMENT: None new. ASSESSMENT: 1. Coronary artery disease, status post subendocardial myocardial infarction, stable. 2. Atherosclerotic heart disease. 3. Hypertensive cardiovascular disease. 4. History of cerebrovascular accident. 5. History of peripheral arterial disease. 6. Chronic kidney disease stage 3. 7. Decreased nutritional status. 8. Debility. PLAN: The patient is stable. Continue present medical regimen. The patient is planned for transfer to nursing facility for rehab. Prognosis remains guarded. MMODL / IJN: [id number] /
== END 2018-02-20 17:01 | DRG 281 ==
LOC: EC 11:10 → 6SEL 14:13
PROVIDERS: ADMIT Internal Medicine; ATTEND Internal Medicine
DX: I21.4 Non-ST elevation (NSTEMI) myocardial infarction (principal); I13.0 Hypertensive heart and chronic kidney disease with heart failure and stage 1 through stage 4 chronic kidney disease, or unspecified chronic kidney disease; I42.0 Dilated cardiomyopathy; I50.42 Chronic combined systolic (congestive) and diastolic (congestive) heart failure; I48.2 Chronic atrial fibrillation; N13.8 Other obstructive and reflux uropathy; I25.110 Atherosclerotic heart disease of native coronary artery with unstable angina pectoris; I73.9 Peripheral vascular disease, unspecified; E78.5 Hyperlipidemia, unspecified; M19.90 Unspecified osteoarthritis, unspecified site; N40.1 Benign prostatic hyperplasia with lower urinary tract symptoms; N18.3 Chronic kidney disease, stage 3 (moderate); I25.5 Ischemic cardiomyopathy; I49.5 Sick sinus syndrome; H91.90 Unspecified hearing loss, unspecified ear; H40.9 Unspecified glaucoma; R53.1 Weakness; D63.1 Anemia in chronic kidney disease; R01.1 Cardiac murmur, unspecified; R29.6 Repeated falls; Z96.652 Presence of left artificial knee joint; Z86.718 Personal history of other venous thrombosis and embolism; Z79.899 Other long term (current) drug therapy; Z79.82 Long term (current) use of aspirin; Z95.0 Presence of cardiac pacemaker; Z86.73 Personal history of transient ischemic attack (TIA), and cerebral infarction without residual deficits; Z74.01 Bed confinement status; Z98.41 Cataract extraction status, right eye; Z98.42 Cataract extraction status, left eye; Z87.891 Personal history of nicotine dependence; Z82.49 Family history of ischemic heart disease and other diseases of the circulatory system; Z71.3 Dietary counseling and surveillance
CPT/HCPCS: 36415; 71046; 80048; 80053; 80061; 81003; 82550; 82553; 83735; 84100; 84484; 85025; 85610; 85730; 87040; 87086; 93005; 94760; 96360; 96361; 96365; 96376; 99285; 99291